=== PATIENT | male | born 1930 | race Caucasian/White ===

== ENCOUNTER 2016-08-07 13:43 | Emergency (ER) | payer OTHER ==
[~2016-08-07] VITALS: Ht 170.2 cm; Wt 76.0 kg
[~2016-08-07 13:43] MED LIST: ACET-1311 PO; ALBU1AER9 INH; ALEN70TA4 PO; ASPI1TAB83 PO; AZIT500T26 PO; CRD200 PO; GUAI1TAB75 PO; IPRASOL4 INH; ISR20 PO; LACT1CAP6 PO; LEVO75TA5 PO; LORA-741 PO; MOME220A INH; OXGN; POLY335019 PO; PRED-301 PO; PRED10TA PO; PRLSR20 PO; SULF800T23 PO; TIOTCAP INH
[2016-08-07 13:49] VITALS: TEMP 36.5; Ht 170.2 cm; Wt 76.0 kg
[2016-08-07] MEDS ORDERED: LEVO100T7 PO (14:28)
[2016-08-07] MEDS ORDERED: ISOS20TA15 PO (14:38)
[2016-08-07] MEDS ORDERED: DOCU-94 PO (14:38)
[2016-08-07] MEDS ORDERED: HYDR-5688 PO ×2 (14:38→16:02)
[2016-08-07] MEDS ORDERED: LSX20 PO (14:38)
[2016-08-07] MEDS ORDERED: POTA10TA33 PO (14:38)
[2016-08-07] MEDS ORDERED: SPRIN/30 INH (14:38)
[2016-08-07] MEDS ORDERED: DXY100 PO (14:38)
[2016-08-07] MEDS ORDERED: ALBU18002 INH (14:38)
[2016-08-07] MEDS ORDERED: CRD200 PO (14:38)
[2016-08-07] MEDS ORDERED: PRED10TA PO (14:43)
--- NOTE | 2016-08-07 15:10 | DIAGNOSTIC IMAGING REPORT ---
RIGHT HUMERUS MIN 2 VIEWS ROUTINE CLINICAL HISTORY: right shoulder pain eval for fx Right trauma. Pain. COMPARISON: None. DISCUSSION: Fracture humeral head. Slight flattening flattening lateral aspect humeral head. No evidence of dislocation. Remaining components of the humerus are unremarkable. There is no evidence for soft tissue swelling. IMPRESSION: Fracture humeral head. The remainder of the humerus is negative. Electronically signed by: Abram Prince M.D. 08/07/2016 3:08 PM Dictated Date/Time: 08/07/2016 3:07 PM
--- NOTE | 2016-08-07 15:12 | DIAGNOSTIC IMAGING REPORT ---
RIGHT SHOULDER MIN 2 VIEWS ROUTINE CLINICAL HISTORY: Right shoulder pain COMPARISON: None. DISCUSSION: There is a suspected age-indeterminate impaction deformity of the humeral neck with irregularity of the greater tuberosity. Please can't with any history of recent trauma. IMPRESSION: Age-indeterminate impaction deformity humeral neck with mild associated irregularity of the greater tuberosity. Please correlate with history of current or prior trauma. Electronically signed by: Felice Montanez M.D. 08/07/2016 3:11 PM Dictated Date/Time: 08/07/2016 3:07 PM
--- NOTE | 2016-08-07 15:12 | DIAGNOSTIC IMAGING REPORT ---
CHEST 2 VIEWS ROUTINE CLINICAL HISTORY: cough eval for pnea dyspnea COMPARISON STUDY: 04/05/2016 FINDINGS: Chronic prominence of the central pulmonary vascular area in chronic bibasilar atelectatic change. And upper lungs are considered clear. Potential minimal infiltrative process posterior gastric angle. IMPRESSION: Minimal parenchymal infiltrate posterior costophrenic angle. Chronic pulmonary hypertension changes. Chronic bibasilar atelectatic changes Electronically signed by: Abram Prince M.D. 08/07/2016 3:11 PM Dictated Date/Time: 08/07/2016 3:09 PM
[2016-08-07] MEDS ORDERED: DOXYCYCLINE HYCLATE 100 MG CAP PO STA (15:21)
[2016-08-07] MEDS ORDERED: SULF800T23 PO (16:02)
[2016-08-07] MEDS ORDERED: PRD20 PO (16:02)
[2016-08-07 16:57] VITALS: BP 133/88; PULSE 60; O2SAT 100
--- NOTE | 2016-08-07 21:57 | EMERGENCY ROOM VISIT NOTE ---
History Report prepared by Billyibjuliann: Thea Pak Under the Supervision of: Dr. Edwin James M.D. First contact with patient: 13:59 Chief Complaint: SHOULDER PAIN Stated Complaint: FALL/ SHOULDER PAIN History of Present Illness The patient is a 85 year old male who presents to the Emergency Room with complaints of persistent shoulder pain that started after a fall earlier today. He was brought to the ED via EMS. He reports after lunch today, he was getting up from his chair, when the chair got caught on a rug and the patient fell over , landing on his right shoulder. He rates his pain as a 7/10 and notes movement worsens his discomfort. He describes the pain as feeling "sharp" in nature. He can still feel his hand and fingers and denies any numbness or weakness in the extremity. He denies any loss of consciousness of sustaining other injuries. He denies any head or neck injury. He also complains of a productive cough with yellow sputum but denies any fevers, chest pain, or shortness of breath and reports "I have been coughing for a very long time". 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 A total of 10 systems reviewed and were otherwise negative. 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 Surgical Problems: (1) S/P IVC filter (2) Status post abdominal aortic aneurysm repair (3) Status post aortobifemoral bypass surgery (4) Status post carotid endarterectomy (5) Status post colonoscopy Family History Abdominal aortic aneurysm FATHER Blood clots MOTHER Congestive heart failure MOTHER Meningitis SISTER Social History Smoking Status: Former Smoker Alcohol Use: none Drug Use: none Marital Status: Housing Status: lives with significant other Occupation Status: retired Current/Historical Medications Scheduled Alendronate Sodium (Fosamax), 70 MG PO WK Amiodarone HCl (Amiodarone HCl), 200 MG PO DAILY Aspirin (Aspirin), 81 MG PO DAILY Doxycycline Hyclate (Doxycycline Hyclate), 100 MG PO DAILY Guaifenesin La (Guaifenesin Er), 600 MG PO UD Isosorbide Dinitrate (Isordil), 20 MG PO BID Lactobacillus (Probiotic), 1 CAP PO TIDM Levothyroxine Sodium (Levothyroxine Sodium), 1 TAB PO DAILY Mometasone Furoate (Inhalation (Asmanex Twisthaler 120 Me), 2 PUFF INH DAILY Omeprazole (Prilosec), 20 MG PO DAILY Oxygen (Oxygen), 5 LITERS NA CONTINOUS Potassium Chloride (Potassium Chloride Sr), 1 TAB PO DAILY Prednisone (Prednisone), 2 TABS PO dailyfor 5days then1 Prednisone Tab (Prednisone), 10 MG PO DAILY Sulfa/Trimethoprim (Bactrim Ds 800MG/160MG), 1 TAB PO BID Tiotropium [place] (Spiriva Handihaler), 1 CAP INH DAILY Scheduled PRN Acetaminophen (Tylenol), 650 MG PO Q4 PRN for Pain or Fever Albuterol Sulfate (Proair Respiclick), 2 PUFF INH Q4 PRN for SOB/Wheezing Docusate Sodium (Colace), 1 CAP PO DAILY PRN for Constipation Furosemide (Furosemide), 1 TAB PO WK PRN for EDEMA Hydrocodone/Acetaminophen 5MG/325MG ([place] 5MG/325MG), 1 TABLET PO Q4 PRN for Pain Hydrocodone/Acetaminophen 5MG/325MG ([place] 5MG/325MG), 1 TABLET PO Q4 PRN for Pain Ipratropium-Albuterol (Duoneb), 1 TREATMENT INH Q4H PRN for SOB/Wheezing Lorazepam (Ativan), 0.5 MG PO Q8 PRN for Anxiety Polyethylene Glycol 3350 (Miralax), 17 GM PO DAILY PRN for Constipation Prednisone Tab (Prednisone), 10 MG PO DAILY PRN for COPD RESCUE KIT Sulfa/Trimethoprim (Bactrim Ds 800MG/160MG), 1 TAB PO BID PRN for COPD RESCUE KIT Allergies Coded Allergies: Ciprofloxacin (Verified Allergy, Severe, RUPTURED RIGHT BICEP TENDON, 04/03) Levofloxacin (Verified Allergy, Severe, TONGUE SWELLING/SOB, 04/03/16) PER DR GERMAN PHONE CALL Amoxicillin (Verified Allergy, Unknown, rash, 04/03/16) Codeine (Verified Adverse Reaction, Intermediate, CONSTIPATION, 04/03/16) Doxycycline (Verified Adverse Reaction, Intermediate, DISORIENTED AND DIZZINESS, 04/03/16) Morphine and Related (Verified Adverse Reaction, Intermediate, CONSTIPATION, 04/03/16) Roflumilast (Verified Adverse Reaction, Unknown, [place] Drunk, 04/03/16) Listed in [facility] record Physical Exam Vital Signs Date Time Temp Pulse Resp B/P Pulse Ox O2 Delivery O2 Flow Rate FiO2 08/07/16 16:57 60 22 133/88 100 08/07/16 15:37 57 20 168/85 100 Room Air 08/07/16 13:49 36.5 67 22 167/93 92 3.0 Physical Exam Constitutional: Vital signs reviewed. Eyes: Pupils are equal round reactive to light. Conjunctiva are noninjected. ENT: Pharynx is clear without erythema or exudate. Mucous membranes are moist. Neck supple without meningeal signs. No midline tenderness to the cervical spine. Respiratory: Clear to auscultation bilaterally. Breath sounds are equal bilaterally. Cardiovascular: Regular rate and rhythm. No rubs or gallops. GI: Soft, nondistended and nontender. Bowel sounds are present. Musculoskeletal: Tenderness to the proximal humerus and shoulder, no deformity, normal distal pulses. No tenderness to the distal humerus, elbow, wrist or hand , no hip tenderness. Integumentary: No cyanosis. Neurological: The patient is awake and alert. No focal deficits. Normal sensation and motor in the distal right upper extremity throughout all major nerve distributions. Psychiatric: Normal affect. Medical Decision & Procedures ER Provider Diagnostic Interpretation: These X-Rays were reviewed and interpreted by myself and the radiologist. CHEST 2 VIEWS ROUTINE CLINICAL HISTORY: cough eval for pnea dyspnea COMPARISON STUDY: 04/05/2016 FINDINGS: Chronic prominence of the central pulmonary vascular area in chronic bibasilar atelectatic change. And upper lungs are considered clear. Potential minimal infiltrative process posterior gastric angle. IMPRESSION: Minimal parenchymal infiltrate posterior costophrenic angle. Chronic pulmonary hypertension changes. Chronic bibasilar atelectatic changes Electronically signed by: Abram Prince M.D. 08/07/2016 3:11 PM RIGHT HUMERUS MIN 2 VIEWS ROUTINE CLINICAL HISTORY: right shoulder pain eval for fx Right trauma. Pain. COMPARISON: None. DISCUSSION: Fracture humeral head. Slight flattening flattening lateral aspect humeral head. No evidence of dislocation. Remaining components of the humerus are unremarkable. There is no evidence for soft tissue swelling. IMPRESSION: Fracture humeral head. The remainder of the humerus is negative. Electronically signed by: Abram Prince M.D. 08/07/2016 3:08 PM RIGHT HUMERUS MIN 2 VIEWS ROUTINE CLINICAL HISTORY: right shoulder pain eval for fx Right trauma. Pain. COMPARISON: None. DISCUSSION: Fracture humeral head. Slight flattening flattening lateral aspect humeral head. No evidence of dislocation. Remaining components of the humerus are unremarkable. There is no evidence for soft tissue swelling. IMPRESSION: Fracture humeral head. The remainder of the humerus is negative. Electronically signed by: Abram Prince M.D. 08/07/2016 3:08 PM ED Course 1402: The patient was evaluated in room A9B. A complete history and physical exam was performed. 1523: I reevaluated the patient. He states he has been on Doxycycline for about 3 months now and when he gets pneumonia, his Applications Consultant puts him on Bactrim and Prednisone. His breathing is no worse than it usually is, but his son noticed he had a productive cough over the last 2 days. I also discussed his humeral fracture and he will follow up with his Orthopedist. 1540: I discussed the patients case with GUCCI Maria, [facility]. She recommends I take the patient off Doxycycline and put him on Prednisone and Bactrim for 10 days. 1545: I discussed my conversation with Maddy Fulton, with the patient and his son. They verbalized complete understanding and agreement. He says for pain medication, he uses Hydrocodone, but he is running out and is requesting a new prescription. Medical Decision This is an 85-year-old male who presents with shoulder pain after fall and a productive cough. Differential diagnosis includes humeral fracture, shoulder dislocation, contusion, pneumonia, bronchitis. I did perform a limited focused review of portions of the patient's old chart on the electronic medical record. The patient has had no recent pertinent visits to this hospital. I did evaluate the patient as noted above. The patient had a mechanical fall and injured his right shoulder. He denies any other injuries, and particular he denies head or neck injury. He has had a productive cough over the past several days but states that he has a chronic cough. He is on oxygen daily for COPD and denies feeling more short of breath than usual. I did order and personally review the patient's right humeral, shoulder and chest x-rays as described above. The patient has a humeral head fracture. He also has what looks like a infiltrate on chest x-ray. I did discuss the test results with the patient and his son. He denies feeling short of breath or having chest pain. His lungs do not demonstrate any significant wheezing. He is on doxycycline chronically. I spoke to his abrading machine tender and she recommended that the patient be placed on Bactrim and 10 days of steroids and stop the doxycycline. The patient was happy with this plan and was discharged with a prescription for Bactrim and steroids. He was also given a prescription for [place] for his shoulder pain. He has used [place] in the past. He was also placed in a arm sling. He will follow up with [facility] for his humeral fracture. [place] Drug Monitoring Program Search Results: no issues identified Consults Time Called: 1528 Consulting Physician: GUCCI Maria [facility] Returned Call: 1540 I discussed the patients case with GUCCI Maria [facility]. She recommends I take the patient off Doxycycline and put him on Prednisone and Bactrim for 10 days. Impression Primary Impression: Right humeral fracture Additional Impressions: Fall Pneumonia Scribe Attestation The scribe's documentation has been prepared under my direct and personally reviewed by me in its entirety. I confirm that the note above accurately reflects all work, treatment, procedures, and medical decision making performed by me. Departure Information Dispostion Home / Self-Care Prescriptions Hydrocodone/Acetaminophen 5MG/325MG ([place] 5MG/325MG) Tab 1 TABLET PO Q4 Y for Pain, #20 TAB Prov: Edwin James M.D. 08/07/16 Prednisone (Prednisone) 20 Mg Tab 2 TABS PO dailyfor 5days then1 for 10 Days, #15 TABS Prov: Edwin James M.D. 08/07/16 Sulfa/Trimethoprim (Bactrim Ds 800MG/160MG) Tab 1 TAB PO BID, #20 TAB Prov: Edwin James M.D. 08/07/16 Referrals Gorge Larson M.D.([facility]) (PCP) Patient Instructions ED Fx Upper Ext, My [facility], Pneumonia Dc Additional Instructions You have been examined and treated today on an emergency basis only. This is not a substitute for, or an effort to provide, complete comprehensive medical care. It is impossible to recognize and treat all injuries or illnesses in a single emergency department visit. It is therefore important that you follow up closely with your physician and your orthopedic doctor. Call as soon as possible for an appointment. Return for worsening symptoms or if you develop fever, vomiting, chest pain, shortness breath, numbness or weakness to your right arm, significant swelling or any other concerning symptoms. Stop doxycycline and take Bactrim instead. Problem Qualifiers
== END 2016-08-07 16:58 | disposition home or self-care (01) ==
LOC: EDBD 13:43 → C.EDA 13:45
DX: S42.301A Unspecified fracture of shaft of humerus, right arm, initial encounter for closed fracture (principal); J18.9 Pneumonia, unspecified organism; W07.XXXA Fall from chair, initial encounter; J96.11 Chronic respiratory failure with hypoxia; J44.9 Chronic obstructive pulmonary disease, unspecified; E03.9 Hypothyroidism, unspecified; I73.9 Peripheral vascular disease, unspecified; E78.5 Hyperlipidemia, unspecified; Z87.891 Personal history of nicotine dependence; Z99.81 Dependence on supplemental oxygen

== ENCOUNTER 2016-08-10 09:12 | Inpatient (IN) | payer OTHER ==
[~2016-08-10] VITALS: Ht 170.2 cm; Wt 75.0 kg
[~2016-08-10 09:12] MED LIST changes: +ALBU18002 INH; -ALBU1AER9 INH; -AZIT500T26 PO; +DOCU-94 PO; +DXY100 PO; +HYDR-5688 PO; +ISOS20TA15 PO; -ISR20 PO; +LEVO100T7 PO; -LEVO75TA5 PO; +LSX20 PO; +POTA10TA33 PO; +PRD20 PO; -PRED-301 PO; +SPRIN/30 INH; -TIOTCAP INH
[2016-08-10] MEDS ORDERED: SODIUM CHLORIDE 0.9% 1000ML 1,000 ML IV STA (09:36)
--- NOTE | 2016-08-10 09:54 | EMERGENCY ROOM VISIT NOTE ---
History Report prepared by Hilary: Edmond García Under the Supervision of: Dr. Gi Bauer M.D. First contact with patient: 09:22 Chief Complaint: URINARY SYMPTOMS Stated Complaint: CONFUSION, URINARY SYMPTOMS Nursing Triage Summary: pt fell on fri had an R arm fx, son reports since yesterday pt has had increased confusion and " talking nonsense" + urinary sx , + incontinenc History of Present Illness The patient is an 85 year old male who presents to the Emergency Room with complaints of persistent confusion since that started 2 days ago. Per patient's son, the patient has been talking "nonsense" for the past few days. The patient was recently discharged from the hospital 3 days ago after a fall that injured his arm. He was also diagnosed with pneumonia and was started on Bactrim and Prednisone. The patient notes that since being discharged from the hospital the patient has been acting more confused than usual. He notes that patient was not confused at the time of the fall or before the fall occurred. Last night, the patient imagined multiple people stopping at his 's bed and that he talked to them. The patient has also had multiple episodes where he has lost control of his bladder including episodes in his sleep. The patient denies fever or urinary burning. The patient took one dose of pain medication for his injured arm 2 days ago, but hasn't taken any since then. Source of History: patient, family Onset: 2 days ago Position: other (global) Timing: other (persistent) Associated Symptoms: + urinary symptoms (urinary incontinence), No fevers Note: Other associated symptoms: talking "nonsense", imagining/ talking to people at night. Denies: urinary burning Review of Systems See HPI for pertinent positives & negatives. A total of 10 systems reviewed and were otherwise negative. 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 Surgical Problems: (1) S/P IVC filter (2) Status post abdominal aortic aneurysm repair (3) Status post aortobifemoral bypass surgery (4) Status post carotid endarterectomy (5) Status post colonoscopy Family History Abdominal aortic aneurysm FATHER Blood clots MOTHER Congestive heart failure MOTHER Meningitis SISTER Social History Smoking Status: Former Smoker Alcohol Use: none Drug Use: none Marital Status: Housing Status: lives with significant other Occupation Status: retired Current/Historical Medications Scheduled Alendronate Sodium (Fosamax), 70 MG PO WK Amiodarone HCl (Amiodarone HCl), 200 MG PO DAILY Aspirin (Aspirin), 81 MG PO DAILY Doxycycline Hyclate (Doxycycline Hyclate), 100 MG PO DAILY Guaifenesin La (Guaifenesin Er), 600 MG PO UD Isosorbide Dinitrate (Isordil), 20 MG PO BID Lactobacillus (Probiotic), 1 CAP PO TIDM Levothyroxine Sodium (Levothyroxine Sodium), 1 TAB PO DAILY Omeprazole (Prilosec), 20 MG PO DAILY Oxygen (Oxygen), 4 LITERS NA CONTINOUS Potassium Chloride (Potassium Chloride Sr), 1 TAB PO DAILY Prednisone (Prednisone), 2 TABS PO dailyfor 5days then1 Prednisone Tab (Prednisone), 10 MG PO DAILY Sulfa/Trimethoprim (Bactrim Ds 800MG/160MG), 1 TAB PO BID Tiotropium [place] (Spiriva Handihaler), 1 CAP INH DAILY Scheduled PRN Acetaminophen (Tylenol), 650 MG PO Q4 PRN for Pain or Fever Albuterol Sulfate (Proair Respiclick), 2 PUFF INH Q4 PRN for SOB/Wheezing Docusate Sodium (Colace), 1 CAP PO DAILY PRN for Constipation Furosemide (Furosemide), 1 TAB PO WK PRN for EDEMA Hydrocodone/Acetaminophen 5MG/325MG ([place] 5MG/325MG), 1 TABLET PO Q4 PRN for Pain Ipratropium-Albuterol (Duoneb), 1 TREATMENT INH Q4H PRN for SOB/Wheezing Lorazepam (Ativan), 0.5 MG PO Q8 PRN for Anxiety Polyethylene Glycol 3350 (Miralax), 17 GM PO DAILY PRN for Constipation Prednisone Tab (Prednisone), 10 MG PO DAILY PRN for COPD RESCUE KIT Sulfa/Trimethoprim (Bactrim Ds 800MG/160MG), 1 TAB PO BID PRN for COPD RESCUE KIT Allergies Coded Allergies: Ciprofloxacin (Verified Allergy, Severe, RUPTURED RIGHT BICEP TENDON, 08/10) Levofloxacin (Verified Allergy, Severe, TONGUE SWELLING/SOB, 08/10/16) PER DR GERMAN PHONE CALL Amoxicillin (Verified Allergy, Intermediate, rash, 08/10/16) Codeine (Verified Adverse Reaction, Intermediate, CONSTIPATION, 08/10/16) Doxycycline (Verified Adverse Reaction, Intermediate, DISORIENTED AND DIZZINESS, 08/10/16) Morphine and Related (Verified Adverse Reaction, Intermediate, CONSTIPATION, 08/10/16) Roflumilast (Verified Adverse Reaction, Intermediate, [place] Drunk, 08/10/16) Listed in [facility] record Physical Exam Vital Signs Date Time Temp Pulse Resp B/P Pulse Ox O2 Delivery O2 Flow Rate FiO2 08/10/16 13:19 70 08/10/16 12:09 84 18 135/68 94 Nasal Cannula 3.0 08/10/16 10:59 68 18 142/69 92 Nasal Cannula 3.0 08/10/16 10:28 67 08/10/16 09:17 36.6 106 20 129/63 96 Room Air Physical Exam Vital signs reviewed. General: Elderly chronically-appearing male, in no distress. HEENT: No scleral icterus, PERRLA, neck supple. Atraumatic. Cardiovascular: Regular rate and rhythm, no extra sounds. Pulmonary: On nasal canula oxygen, diminished breath sounds bilaterally. Abdomen: Soft, nontender, nondistended, positive bowel sounds. Musculoskeletal: Atraumatic, no peripheral edema. Neurologic: Patient awake alert and oriented x 3, full strength in all 4 extremities. Cranial nerves 2 through 12 grossly intact. Answering most questions appropriately. Skin: Warm, dry, no rash Medical Decision & Procedures ER Provider Diagnostic Interpretation: X-ray results as stated below per interpretation by me and the radiologist: CHEST ONE VIEW PORTABLE CLINICAL HISTORY: Fall. Altered mental status. COMPARISON STUDY: Chest radiograph August 07, 2016. FINDINGS: The patient is rotated. Mild cardiomegaly is unchanged. No pneumothorax or pleural effusion is present. There is no lobar consolidation. Mild lower lung interstitial thickening is similar to prior exams. The appearance of the chest is unchanged. Emphysema is noted. IMPRESSION: No acute findings. No change in appearance of the chest with stable bilateral lower lung interstitial thickening and underlying emphysema. Electronically signed by: Jose Hopkins M.D. 08/10/2016 10:02 AM Dictated Date/Time: 08/10/2016 10:[address]AST CT DOSE: 614.27 mGy.cm HISTORY: Change in mental status AMS TECHNIQUE: Multiaxial CT images of the head were performed without the use of intravenous contrast. Comparison: 07/29/2015 Findings: The paranasal sinuses and mastoid air cells are clear. Age-related atrophy and chronic small vessel change. No acute intracranial hemorrhage. No evidence of midline shift. Impression: No acute process. Age-related change. Electronically signed by: Abram Prince M.D. 08/10/2016 10:46 AM Dictated Date/Time: 08/10/2016 10:45 AM Laboratory Results Test 08/10/16 09:30 08/10/16 09:50 08/10/16 10:00 08/10/16 10:07 Prothrombin Time 11.2 SECONDS (9.0-12.0) Prothromb Time International Ratio 1.0 (0.9-1.1) Activated Partial Thromboplast Time 22.2 SECONDS (21.0-31.0) Partial Thromboplastin Ratio 0.9 Total Bilirubin 0.4 mg/dl (0.2-1) Direct Bilirubin 0.1 mg/dl (0-0.2) Aspartate Amino Transf (AST/SGOT) 14 U/L (15-37) Alanine Aminotransferase (ALT/SGPT) 23 U/L (12-78) Alkaline Phosphatase 71 U/L (45-117) Ammonia < 10.0 umol/L (11-32) Total Creatine Kinase 65 U/L (39-308) Creatine Kinase MB 3.9 ng/ml (0.5-3.6) Creatine Kinase MB Ratio 6.0 (0-3.0) Total Protein 5.8 gm/dl (6.4-8.2) Albumin 3.2 gm/dl (3.4-5.0) Thyroid Stimulating Hormone (TSH) 1.860 uIu/ml (0.300-4.500) Bedside Lactic Acid Venous 2.89 mmol/L (0.90-1.70) Bedside Troponin I 0.040 ng/ml (0-0.045) Test 08/10/16 11:55 Urine Color YELLOW Urine Appearance CLEAR (CLEAR) Urine pH 5.0 (4.5-7.5) Urine Specific [place] 1.022 (1.000-1.030) Urine Protein NEG (NEG) Urine Glucose (UA) NEG (NEG) Urine Ketones NEG (NEG) Urine Occult Blood 2+ (NEG) Urine Nitrite NEG (NEG) Urine Bilirubin NEG (NEG) Urine Urobilinogen NEG (NEG) Urine Leukocyte Esterase TRACE (NEG) Urine WBC (Auto) 1-5 /hpf (0-5) Urine RBC (Auto) 0-4 /hpf (0-4) Urine Hyaline Casts (Auto) 0 /lpf (0-5) Urine Epithelial Cells (Auto) 10-20 /lpf (0-5) Urine Bacteria (Auto) NEG (NEG) Laboratory results per my review. Medications Administered Medications (Trade) Dose Ordered Sig/Jesu Route Start Time Stop Time Status Last Admin Dose Admin Sodium Chloride (Nss 1000ml) 1,000 ml @ 125 mls/hr Q8H STAT IV 08/10/16 09:36 08/10/16 16:53 DC 08/10/16 10:13 125 MLS/HR Ceftriaxone Sodium (Rocephin Inj) 1 gm NOW STAT IV 08/10/16 11:43 08/10/16 11:45 DC 08/10/16 11:43 1 GM ECG Indication: altered mental status Rate (beats per minute): 72 Rhythm: sinus rhythm Findings: PAC, no acute ischemic change ED Course 0925: Past medical records reviewed. The patient was evaluated in room A9. A complete history and physical examination was performed. 0936: Ordered NSS 1000 ml @ 125 mls/hr IV. 1143: Ordered Rocephin Inj 1 gm IV. 1254: At this time, I reevaluated the patient and discussed the treatment plan with him and his son. 1300: At this time, I discussed the patient's case with Dr. Mercado - Jerome Angel and she agreed to accept the patient for further evaluation. Medical Decision Differential diagnosis: Etiologies such as metabolic, infection, hypoglycemia, electrolyte abnormalities , cardiac sources, intracerebral event, toxicologic, neurologic, as well as others were entertained. This pt was evaluated and appeared to be in no distress. IV access was obtained and lab work was drawn. Pt was placed on the cardiac cath rn. CT head was performed and is negative for acute intracranial abnl. CXR reveals chronic changes. Lab work reveals a mild leukocytosis, elevated lactic acid, of uncertain etiology. Pt was ordered 1 gm of IV ceftriaxone as he has PCN and fluroquinolone allergies. Pt was hydrated with NSS. I did discuss the findings with pt and family. He will be evaluated by the hospitalist service for further management. Consults Time Called: 1256 Consulting Physician: Dr. Mercado - Hospitalist Jeanne Returned Call: 1300 At this time, I discussed the patient's case with Dr. Mercado and she agreed to accept the patient for further evaluation. Impression Primary Impression: Altered mental status Additional Impressions: Leukocytosis Lactic acidosis Dehydration Scribe Attestation The scribe's documentation has been prepared under my direction and personally reviewed by me in its entirety. I confirm that the note above accurately reflects all work, treatment, procedures, and medical decision making performed by me. Departure Information Dispostion Being Evaluated By Hospitalist Referrals Gorge Larson M.D.(LIZ) (PCP) Problem Qualifiers Primary Impression: Altered mental status Altered mental status type: disorientation Qualified Codes: R41.0 - Disorientation, unspecified Additional Impressions: Leukocytosis Leukocytosis type: unspecified Qualified Codes: D72.829 - Elevated white blood cell count, unspecified
--- NOTE | 2016-08-10 10:03 | DIAGNOSTIC IMAGING REPORT ---
CHEST ONE VIEW PORTABLE CLINICAL HISTORY: Fall. Altered mental status. COMPARISON STUDY: Chest radiograph August 07, 2016. FINDINGS: The patient is rotated. Mild cardiomegaly is unchanged. No pneumothorax or pleural effusion is present. There is no lobar consolidation. Mild lower lung interstitial thickening is similar to prior exams. The appearance of the chest is unchanged. Emphysema is noted. IMPRESSION: No acute findings. No change in appearance of the chest with stable bilateral lower lung interstitial thickening and underlying emphysema. Electronically signed by: Jose Hopkins M.D. 08/10/2016 10:02 AM Dictated Date/Time: 08/10/2016 10:00 AM
[2016-08-10 10:18] LABS: BASO % 0.2 %; BASO ABS # 0.03 K/uL (0-0.2); COMPLETE YES; EOS % 0.2 %; IG% 2.3 %; LYMPH % 7.1 %; LYMPH ABS # 0.87 K/uL (1.2-3.4); MEAN CELL VOLUME 98.1 fL (80-100); MEAN CORPUSCULAR HEMOGLOBIN 32.9 pg (25-34); MEAN CORPUSCULAR HGB CONC 33.5 g/dl (32-36); MEAN PLATELET VOLUME 10.1 fL (7.4-10.4); MONO % 11.4 %; NEUT % 78.8 %; PLATELET COUNT 135 K/uL (130-400); RED BLOOD COUNT 3.16 M/uL (4.7-6.1); WHITE BLOOD COUNT 12.32 K/uL (4.8-10.8)
[2016-08-10 10:45] LABS: BUN/CREATININE RATIO 27.5 (10-20); CALCIUM 9.1 mg/dl (8.5-10.1); CREATININE 1.5 mg/dl (0.60-1.40); POTASSIUM 3.7 mmol/L (3.5-5.1)
--- NOTE | 2016-08-10 10:47 | DIAGNOSTIC IMAGING REPORT ---
HEAD CT NONCONTRAST CT DOSE: 614.27 mGy.cm HISTORY: Change in mental status AMS TECHNIQUE: Multiaxial CT images of the head were performed without the use of intravenous contrast. Comparison: 07/29/2015 Findings: The paranasal sinuses and mastoid air cells are clear. Age-related atrophy and chronic small vessel change. No acute intracranial hemorrhage. No evidence of midline shift. Impression: No acute process. Age-related change. Electronically signed by: Abram Prince M.D. 08/10/2016 10:46 AM Dictated Date/Time: 08/10/2016 10:45 AM
[2016-08-10] MEDS ORDERED: CEFTRIAXONE SOD INJ 1 GM ADDVIAL IV STA (11:43)
[2016-08-10 12:19] LABS: URINE APPEARANCE CLEAR (CLEAR); URINE BILIRUBIN NEG (NEG); URINE COLOR YELLOW; URINE NITRITE NEG (NEG); URINE SPECIFIC GRAVITY 1.022 (1.000-1.030); UROBILINOGEN NEG (NEG); ZZUR CULT IF INDIC CLEAN CATCH NO
[2016-08-10 12:21] LABS: MANUAL MICROSCOPIC REQUIRED? NO; REVIEW REQ? NO
[2016-08-10] MEDS ORDERED: ACETAMINOPHEN 325 MG TAB PO PRN (13:45)
[2016-08-10] MEDS ORDERED: ONDANSETRON INJ 2 MG/ML 2 ML VIAL IV PRN (13:45)
[2016-08-10 13:59] LABS: PARTIAL THROMBOPLASTIN RATIO 0.9; PROTHROMBIN TIME (PATIENT) 11.2 SECONDS (9.0-12.0)
[2016-08-10] MEDS ORDERED: SODIUM CHLORIDE 0.9% 1000ML 1,000 ML IV SCH (14:00)
[2016-08-10] MEDS ORDERED: DOCUSATE SODIUM 100 MG CAP PO PRN (15:00)
[2016-08-10] MEDS ORDERED: HYDROCODONE/ACETAMOPHEN 5/325MG TAB PO PRN (15:00)
[2016-08-10] MEDS ORDERED: ALBUT/IPRATROP 3MG/0.5MG NEB 3 ML VIAL INH PRN (15:00)
[2016-08-10] MEDS ORDERED: LORAZEPAM 0.5 MG TAB PO PRN (15:00)
--- NOTE | 2016-08-10 15:00 | History and Physical ---
History & Physical Date & Time of Service: Aug 10, 2016 at 13:53 Chief Complaint: Confusion, Urinary Symptoms Primary Care Physician: Gorge Larson M.D.(LIZ) History of Present Illness Source: patient, family, clinic records, hospital records Patient seen and examined. 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 Patient reports he is here for a check up and history is taken primarily from his son. Who reports patient had a mechanical fall on 08/07. He came to the ED and was diagnosed with a right humerus fracture. He was also diagnosed with pneumonia at that time and discharged home with prednisone, Bactrim, and Acme. The next evening the patient started being very "hyper" he was talking in nonsense and started having visual hallucinations. Son reports the patient hardly slept at all. Also each morning when the patient woke up in the morning his bedsheets were wet. His son is unsure if he was incontinent and or just missed when using his urinal bottle. He reports that the patient has not had any day time incontinence. He reports in the past the patient has been hyper with higher doses of prednisone than his chronic 10mg, but has never had these other confused symptoms. Son reports that he does not think the patient has had Acme since Wednesday morning. In the ED VS are stable, POC lactate is 2.89, WBC count is 12K, CT head is negative, 1 view CXR is without acute abnormality. UA has trace leukocyte esterase and +2 RBCs. He received Rocephin and IVFs. He will be admitted for further workup and treatment. Past Medical/Surgical History Medical Problems: (1) AAA (abdominal aortic aneurysm) Permanent Comment: CT angio 06/11/15-stable 4.4 cm AAA Status: Chronic (2) Abdominal hernia Status: Chronic (3) Carotid artery stenosis Status: Chronic (4) Chronic obstructive lung disease Status: Chronic (5) Chronic respiratory failure Status: Chronic (6) Dyslipidemia Status: Chronic (7) History of adenomatous polyp of colon Status: Chronic (8) History of central retinal artery occlusion Status: Chronic (9) History of Clostridium difficile Status: Chronic (10) History of DVT (deep vein thrombosis) Permanent Comment: unprovoked bilat pulm emboli + DVT LLE December 2013 Status: Chronic (11) History of pulmonary embolism Permanent Comment: unprovoked bilat pulm emboli + DVT LLE December 2013 Status: Chronic (12) Hypothyroidism Status: Chronic (13) Peripheral vascular disease Status: Chronic (14) Pulmonary nodules Status: Chronic (15) Wandering atrial pacemaker Status: Chronic Surgical Problems: (1) S/P IVC filter Status: Chronic (2) Status post abdominal aortic aneurysm repair Status: Chronic (3) Status post aortobifemoral bypass surgery Status: Chronic (4) Status post carotid endarterectomy Status: Chronic (5) Status post colonoscopy Status: Chronic Family History Abdominal aortic aneurysm FATHER Blood clots MOTHER Congestive heart failure MOTHER Meningitis SISTER Social History Smoking Status: Former Smoker Drug Use: none Marital Status: Housing status: lives with family, lives with significant other Occupational Status: retired Immunizations History of Influenza Vaccine: Yes Influenza Vaccine Date: Mar 19, 2014 History of Tetanus Vaccine?: Yes History of Pneumococcal: Yes Pneumococcal Date: Mar 29, 2009 History of Hepatitis B Vaccine: No Multi-Drug Resistant Organisms History of MDRO: No Allergies Coded Allergies: Ciprofloxacin (Verified Allergy, Severe, RUPTURED RIGHT BICEP TENDON, 08/10) Levofloxacin (Verified Allergy, Severe, TONGUE SWELLING/SOB, 08/10/16) PER DR GERMAN PHONE CALL Amoxicillin (Verified Allergy, Intermediate, rash, 08/10/16) Codeine (Verified Adverse Reaction, Intermediate, CONSTIPATION, 08/10/16) Doxycycline (Verified Adverse Reaction, Intermediate, DISORIENTED AND DIZZINESS, 08/10/16) Morphine and Related (Verified Adverse Reaction, Intermediate, CONSTIPATION, 08/10/16) Roflumilast (Verified Adverse Reaction, Intermediate, [place] Drunk, 08/10/16) Listed in [facility] record Home Medications Scheduled Alendronate Sodium (Fosamax), 70 MG PO WK Amiodarone HCl (Amiodarone HCl), 200 MG PO DAILY Aspirin (Aspirin), 81 MG PO DAILY Doxycycline Hyclate (Doxycycline Hyclate), 100 MG PO DAILY Guaifenesin La (Guaifenesin Er), 600 MG PO UD Isosorbide Dinitrate (Isordil), 20 MG PO BID Lactobacillus (Probiotic), 1 CAP PO TIDM Levothyroxine Sodium (Levothyroxine Sodium), 1 TAB PO DAILY Omeprazole (Prilosec), 20 MG PO DAILY Oxygen (Oxygen), 4 LITERS NA CONTINOUS Potassium Chloride (Potassium Chloride Sr), 1 TAB PO DAILY Prednisone (Prednisone), 2 TABS PO dailyfor 5days then1 Prednisone Tab (Prednisone), 10 MG PO DAILY Sulfa/Trimethoprim (Bactrim Ds 800MG/160MG), 1 TAB PO BID Tiotropium [place] (Spiriva Handihaler), 1 CAP INH DAILY Scheduled PRN Acetaminophen (Tylenol), 650 MG PO Q4 PRN for Pain or Fever Albuterol Sulfate (Proair Respiclick), 2 PUFF INH Q4 PRN for SOB/Wheezing Docusate Sodium (Colace), 1 CAP PO DAILY PRN for Constipation Furosemide (Furosemide), 1 TAB PO WK PRN for EDEMA Hydrocodone/Acetaminophen 5MG/325MG (Acme 5MG/325MG), 1 TABLET PO Q4 PRN for Pain Ipratropium-Albuterol (Duoneb), 1 TREATMENT INH Q4H PRN for SOB/Wheezing Lorazepam (Ativan), 0.5 MG PO Q8 PRN for Anxiety Polyethylene Glycol 3350 (Miralax), 17 GM PO DAILY PRN for Constipation Prednisone Tab (Prednisone), 10 MG PO DAILY PRN for COPD RESCUE KIT Sulfa/Trimethoprim (Bactrim Ds 800MG/160MG), 1 TAB PO BID PRN for COPD RESCUE KIT Review of Systems Unable to assess d/t mental status Physical Exam Vital Signs Date Time Temp Pulse Resp B/P Pulse Ox O2 Delivery O2 Flow Rate FiO2 08/10/16 13:42 65 18 132/71 Nasal Cannula 3.0 08/10/16 13:19 70 08/10/16 12:09 84 18 135/68 94 Nasal Cannula 3.0 08/10/16 10:59 68 18 142/69 92 Nasal Cannula 3.0 08/10/16 10:28 67 08/10/16 09:17 36.6 106 20 129/63 96 Room Air General Appearance: + pertinent finding (WD/WN elderly 85 year old male lying in bed in NAD ) Head: normocephalic, atraumatic Eyes: PERRL, EOMI, sclerae normal ENT: hearing grossly normal, pharynx normal Neck: supple, no JVD Respiratory/Chest: chest non-tender, normal breath sounds, no respiratory distress, no accessory muscle use, + crackles (trace) Cardiovascular: regular rate, rhythm, no edema, no gallop, no JVD, normal peripheral pulses, + systolic murmur Abdomen/GI: normal bowel sounds, non tender, soft Back: normal inspection, no muscle spasm Extremities/Musculoskelatal: no calf tenderness, normal capillary refill, no pedal edema, + pertinent finding (Right arm in sling, pulses intact, no numbness or tingling ) Neurologic/Psych: + pertinent finding (Alert,& orietned x 3 no focal deficits noted ) Skin: normal color, warm/dry, no rash Lymphatic: no adenopathy Diagnostics Laboratory Results Results Past 24 Hours Test 08/10/16 09:30 08/10/16 09:50 08/10/16 10:00 08/10/16 10:07 Range/Units White Blood Count 12.32 4.8-10.8 K/uL Red Blood Count 3.16 4.7-6.1 M/uL Hemoglobin 10.4 14.0-18.0 g/dL Hematocrit 31.0 42-52 % Mean Corpuscular Volume 98.1 80-100 fL Mean Corpuscular Hemoglobin 32.9 25-34 pg Mean Corpuscular Hemoglobin Concent 33.5 32-36 g/dl Platelet Count 135 130-400 K/uL Mean Platelet Volume 10.1 7.4-10.4 fL Neutrophils (%) (Auto) 78.8 % Lymphocytes (%) (Auto) 7.1 % Monocytes (%) (Auto) 11.4 % Eosinophils (%) (Auto) 0.2 % Basophils (%) (Auto) 0.2 % Neutrophils # (Auto) 9.71 1.4-6.5 K/uL Lymphocytes # (Auto) 0.87 1.2-3.4 K/uL Monocytes # (Auto) 1.41 0.11-0.59 K/uL Eosinophils # (Auto) 0.02 0-0.5 K/uL Basophils # (Auto) 0.03 0-0.2 K/uL RDW Standard Deviation 57.7 36.4-46.3 fL RDW Coefficient of Variation 16.1 11.5-14.5 % Immature Granulocyte % (Auto) 2.3 % Immature Granulocyte # (Auto) 0.28 0.00-0.02 K/uL Sodium Level 144 136-145 mmol/L Potassium Level 3.7 3.5-5.1 mmol/L Chloride Level 107 98-107 mmol/L Carbon Dioxide Level 26 21-32 mmol/L Anion Gap 11.0 3-11 mmol/L Blood Urea Nitrogen 41 7-18 mg/dl Creatinine 1.50 0.60-1.40 mg/dl Est Creatinine Clear Calc Drug Dose 34.3 ml/min Estimated GFR () 48.8 Estimated GFR (Non- 42.1 BUN/Creatinine Ratio 27.5 10-20 Random Glucose 83 70-99 mg/dl Calcium Level 9.1 8.5-10.1 mg/dl Magnesium Level 2.0 1.8-2.4 mg/dl Total Bilirubin 0.4 0.2-1 mg/dl Direct Bilirubin 0.1 0-0.2 mg/dl Aspartate Amino Transf (AST/SGOT) 14 15-37 U/L Alanine Aminotransferase (ALT/SGPT) 23 12-78 U/L Alkaline Phosphatase 71 45-117 U/L Ammonia < 10.0 11-32 umol/L Total Creatine Kinase 65 39-308 U/L Creatine Kinase MB 3.9 0.5-3.6 ng/ml Creatine Kinase MB Ratio 6.0 0-3.0 Total Protein 5.8 6.4-8.2 gm/dl Albumin 3.2 3.4-5.0 gm/dl Bedside Lactic Acid Venous 2.89 0.90-1.70 mmol/L Bedside Troponin I 0.040 0-0.045 ng/ml Test 08/10/16 11:55 08/10/16 13:41 08/10/16 13:42 08/10/16 13:45 Range/Units Urine Color YELLOW Urine Appearance CLEAR CLEAR Urine pH 5.0 4.5-7.5 Urine Specific [place] 1.022 1.000-1.030 Urine Protein NEG NEG Urine Glucose (UA) NEG NEG Urine Ketones NEG NEG Urine Occult Blood 2+ NEG Urine Nitrite NEG NEG Urine Bilirubin NEG NEG Urine Urobilinogen NEG NEG Urine Leukocyte Esterase TRACE NEG Urine WBC (Auto) 1-5 0-5 /hpf Urine RBC (Auto) 0-4 0-4 /hpf Urine Hyaline Casts (Auto) 0 0-5 /lpf Urine Epithelial Cells (Auto) 10-20 0-5 /lpf Urine Bacteria (Auto) NEG NEG Microbiology Results 08/10/16 Blood Culture, Received Pending 08/10/16 Blood Culture, Received Pending Diagnostic Radiology CXR Per radiologist read: IMPRESSION: No acute findings. No change in appearance of the chest with stable bilateral lower lung interstitial thickening and underlying emphysema. CT HEAD Per radiologist read: Impression: No acute process. Age-related change. EKG Sinus Rhythm with PACs, 72 BPM, QTc 453 Impression Assessment and Plan 85 year old male presents to the ED with altered mental status ALTERED MENTAL STATUS -admit to tele -? cause possibly secondary to prednisone, pneumonia, sundowning, recent fracture and other etiologies -CT head negative for acute processes, patient nonfocal -EKG nonischemic, Troponin negative, no signs of ACS -Check PCR flu, urine tox screen, Tylenol level, B12, folate, and TSH -Stop increased prednisone dose, return to chronic 10mg daily -Gentle IVF hydration -Monitor overnight in tele -VSS -Fall precautions LEUKOCYTOSIS/ELEVATED LACTATE -WBC count 12K, POC lactate 2.89 -Leukocytosis possibly secondary to prednisone use -Point of care lactate may be unreliable, will repeat formal lactate now -CXR without pneumonia -Will finish course of treatment for pneumonia with Rocephin and Bactrim -check for Flu -Sputum cultures ordered -Blood cultures, urine culture pending -gentle IVF hydration -VS stable monitor in tele SEVERE COPD WITH RECENT CAP -1 view CXR today without acute processes -Has been on prednisone and Bactrim for 3 days -on chronic oxygen therapy, saturating well -continue home inhalers,nebs -Was on chronic Doxycycline prior starting Bactrim -Stop Bactrim -Rocephin and Azithromycin for CAP RIGHT HUMERUS FRACTURE -s/p mechanical fall -continue sling, norco prn HYPOTHYROIDISM -check TSH -continue Synthroid PAROXYSMAL AFIB -currently in sinus rhythm -not a candidate for termite treater anticoagulation -continue Amiodarone -continue Aspirin ANXIETY -continue Ativan prn HLD -h/o statin intolerance PERIPHERAL VASCULAR DISEASE -continue Aspirin, Imdur H/O THORACIC AORTIC ANEURYSM -3.9 cm on last check -followup with PCP DVT PROPHYLAXIS: Sq heparin CODE STATUS: LEVEL 5 DNR per my discussion with the patient and his son DISPO:In my clinical judgment this beneficiary meets acute admission criteria, established by [facility], that includes being hospitalized through two midnights. discharge planning eval Patient seen in collaboration with Dr. Mercado Level of Care Telemetry Resuscitation Status DO NOT RESUSCITATE VTE Prophylaxis VTE Risk Assessment Done? Y/N: Yes Risk Level: Moderate Given or contraindicated: Unfractionated heparin SQ Note ADDENDUM: I have examined the patient, discussed the case with the provider above. and agree with the assessment and plan as stated. His confusion was not present on my exam today as he is alert and oriented x 3. However, he did mention that he was up all night after hallucinations that men were trying to take down his door, and he had to stay awake to protect his . He informs me that he knew it wasn't real but it was haunting him and keeping him up. He denies any urinary symptoms and states that his cough has improved since being on the antibiotics. He uses home oxygen at home and doesn't feel that his breathing is any worse at this time. He denies fevers and chills. He denies any pain in his R arm at rest, which is significantly bruised and is in a sling. On exam he is HD stable and satting 91% on 2L via nasal canula and no conversational dyspnea. Lung sounds are diminished but no crackles, rales or wheezes were heard. CXR shows no pneumonia. B12 level is low, so will start IM replacement in setting of confusion. UA negative. Other labs pending. Agree with plan for initial tele monitoring as confusion is multifactorial. Radha Mercado, DO Hospitalist
[2016-08-10 15:11] VITALS: BP 123/72; PULSE 70; TEMP 36.6; O2SAT 94; Ht 170.2 cm; Wt 75.0 kg
[2016-08-10] MEDS ORDERED: ALBUTEROL HFA INHALER 8.5 GM INH PRN (15:15)
[2016-08-10] MEDS ORDERED: POLYETHYLENE (MIRALAX) 17 GM PACK PO PRN (15:15)
[2016-08-10 16:30] VITALS: BP 130/80; PULSE 84; TEMP 36; O2SAT 87
[2016-08-10] MEDS ORDERED: AZITHROMYCIN 250 MG TAB PO ONE (16:52)
[2016-08-10] MEDS ORDERED: CYANOCOBALAMIN 1000 MCG/ML VIAL IM ONE (18:30)
[2016-08-10 19:51] VITALS: BP 157/77; PULSE 80; TEMP 36.8; O2SAT 90
[2016-08-10] MEDS: HEPARIN SOD 5000 UNIT/0.5 ML CARP SQ SCH (20:33)
[2016-08-10] MEDS: GUAIFENESIN 600 MG TABCR PO SCH (20:34)
[2016-08-10 21:29] LABS: INFLUENZA A PCR Neg for Influ A (NEG); INFLUENZA B PCR Neg for Influ B (NEG)
[2016-08-11] VITALS (8 sets, daily range): BP systolic 113–138; BP diastolic 66–80; PULSE 70–86; TEMP 36.7–37.1; O2SAT 84–96
[2016-08-11 00:26] LABS: BENZODIAZEPINE, URINE NEG (NEG); COCAINE,URINE NEG (NEG); PHENCYCLIDINE, URINE NEG (NEG)
[2016-08-11 05:44] LABS: MEAN CELL VOLUME 100.3 fL (80-100); MEAN CORPUSCULAR HEMOGLOBIN 32.8 pg (25-34); MEAN CORPUSCULAR HGB CONC 32.7 g/dl (32-36); MEAN PLATELET VOLUME 10.5 fL (7.4-10.4); PLATELET COUNT 116 K/uL (130-400); RED BLOOD COUNT 2.99 M/uL (4.7-6.1)
[2016-08-11] MEDS: LEVOTHYROXINE 100 MCG TAB PO SCH (05:51)
[2016-08-11] MEDS: ISOSORBIDE DINITRATE 20 MG TAB PO SCH ×2 (05:51→12:48)
[2016-08-11] MEDS: HEPARIN SOD 5000 UNIT/0.5 ML CARP SQ SCH ×3 (05:52→23:13)
[2016-08-11 06:13] LABS: CALCIUM 8.3 mg/dl (8.5-10.1); CREATININE 1.7 mg/dl (0.60-1.40); MAGNESIUM 1.8 mg/dl (1.8-2.4); POTASSIUM 3.7 mmol/L (3.5-5.1)
[2016-08-11] MEDS: ASPIRIN 81 MG ECTAB PO SCH (08:25)
[2016-08-11] MEDS: AZITHROMYCIN 250 MG TAB PO SCH (08:25)
[2016-08-11] MEDS: POTASSIUM CHLORIDE 10 MEQ TABCR PO SCH (08:25)
[2016-08-11] MEDS: AMIODARONE 200 MG TAB PO SCH (08:25)
[2016-08-11] MEDS: PANTOprazole SOD 40 MG TAB PO SCH (08:25)
[2016-08-11] MEDS: TIOTROPIUM BROMIDE 5 PUFF/90 MCG INH INH SCH (08:26)
[2016-08-11] MEDS: GUAIFENESIN 600 MG TABCR PO SCH ×2 (08:26→23:11)
--- NOTE | 2016-08-11 11:52 | Clinical Documentation Query ---
ESTEFANÍA Arora : CLINICAL DOCUMENTATION QUERY Patient is an 85 year old male presenting with confusion and urinary symptoms, subsequently admitted with a diagnosis of altered mental status. This was deemed possibly secondary to prednisone, pneumonia, sundowning, fracture, and/or other etiology. As appropriate, consider clarification as suggested below as this directly impacts DRG assignment and assigns a higher severity of illness and is associated with a greater risk of mortality. In your clinical opinion is this patient being managed for: ( X ) Encephalopathy possibly secondary to prednisone, pneumonia, sundowning, recent fracture and other etiologies ( ) Other explanation of clinical findings (Please Explain) ( ) Unable to determine (Please Define) ( ) Need to Discuss ( ) Not Agree The medical record reflects the following clinical findings, treatment, and risk factors. Clinical Indicators: AMS in the setting of possible medication adverse effect, infectious process, other Treatment: CT head, labs, IVF, CXR, sputum and blood cultures Risk Factors: As above Encephalopathy is a term for any diffuse disease of the brain that alters brain function or structure. Encephalopathy may be caused by infectious agent (bacteria, virus, or prion), metabolic or mitochondrial dysfunction, brain tumor or increased pressure in the skull, prolonged exposure to toxic elements (including solvents, drugs, radiation, paints, industrial chemicals, and certain metals), chronic progressive trauma, poor nutrition, or lack of oxygen or blood flow to the brain. The hallmark of encephalopathy is an altered mental state. Depending on the type and severity of encephalopathy, common neurological symptoms are progressive loss of memory and cognitive ability, subtle personality changes, inability to concentrate, lethargy, and progressive loss of consciousness. Other neurological symptoms may include myoclonus (involuntary twitching of a muscle or group of muscles), nystagmus (rapid, involuntary eye movement), tremor, muscle atrophy and weakness, dementia, seizures, and loss of ability to swallow or speak. Blood tests, spinal fluid examination, imaging studies, electroencephalograms, and similar diagnostic studies may be used to differentiate the various causes of encephalopathy. Please clarify and document your clinical opinion in the progress notes and discharge summary. Terms such as "probable", "suspected", "likely", "questionable", "possible", or "still to be ruled out" are acceptable. IF IN AGREEMENT, YOU MUST DOCUMENT ABOVE DIAGNOSTIC STATEMENT IN DAILY PROGRESS NOTES AND DISCHARGE SUMMARY. This document is not part of the patient's record. Thank You, Ibrahima Bulter RN [phone]
[2016-08-11] MEDS ORDERED: CYANOCOBALAMIN 1000 MCG/ML VIAL IM ONE (12:00)
[2016-08-11] MEDS: CEFTRIAXONE SOD INJ 1 GM in DEXTROSE 5% ADD-VANTAGE 50ML 50 ML IV SCH (12:49)
--- NOTE | 2016-08-11 13:45 | DIAGNOSTIC IMAGING REPORT ---
RIGHT ELBOW 2 VIEWS CLINICAL HISTORY: Right elbow pain. FINDINGS: AP and lateral portable views of the right elbow are obtained. No prior studies are available for comparison at the time of dictation. The examination is significantly degraded by suboptimal positioning. The skeletal structures are osteopenic. There is no clear radiographic evidence of fracture. The joint spaces appear preserved. There is no joint effusion identified. Mild soft tissue sinus present in the imaged right upper extremity. A small enthesophyte is present the triceps insertion. IMPRESSION: Soft tissue swelling with no acute fracture identified. Note that the examination is significantly degraded by suboptimal positioning. If there is strong clinical concern for occult fracture consider short-term radiographic follow-up. Electronically signed by: Branden Saravia M.D. 08/11/2016 1:43 PM Dictated Date/Time: 08/11/2016 1:41 PM
[2016-08-11] MEDS: SODIUM CHLORIDE 0.9% 1000ML 1,000 ML IV SCH (14:01)
--- NOTE | 2016-08-11 14:03 | Progress Note ---
Internal Med Progress Note Date of Service: Aug 11, 2016. Provider Documentation: SUBJECTIVE: Patient is seen and examined at bedside. Currently oriented X 3. Denies any chest pain, SOB at rest. Denies any other complaints. Intermittently confused per staff. OBJECTIVE: Vital Signs-as noted below Physical Exam: General Appearance:Moderately built and nourished, no apparent distress Head: normocephalic, Atraumatic Eyes: normal inspection, EOMI, PERRLA Neck: supple, no JVD, Trachea midline Respiratory/Chest: Decreased breath sounds, CTA, No accessory muscle use Cardiovascular: S1, S2, NSR, No murmur Abdomen/GI:Soft, Non tender, Bowel sounds present, No guarding/rigidity/ organomegaly Extremities/Musculoskelatal:normal inspection, no edema, Right UE in sling Neurologic/Psych:AAOX3, grossly no focal neurological deficits Skin: normal color, warm Lab data as noted below. ASSESSMENT & PLAN: Patient is an 85 yr old male presents to the ED with altered mental status ALTERED MENTAL STATUS:ENCEPHALOPATHY Improving Continue monitoring in tele Likely secondary to prednisone, pneumonia, medications CT head: negative for acute processes PCR Flu: Negative, urine tox screen:Negative B12: S/P IM dose of Vit B12 TSH: wnl Prednisone dose changed back to chronic 10mg daily Gentle IVF Fall precautions ZULLY: Likely secondary to Bactrim Cr levels: 1.7 today Start IV fluids Check renal ultrasound Hematuria on initial UA, recheck UA Avoid nephrotoxic agents LEUKOCYTOSIS/ELEVATED LACTATE Resolved Likely secondary to prednisone use Lactate:wnl -CXR without pneumonia Complete the IV antibiotics course for pneumonia Flu PCR: negative FU Blood cultures, urine culture SEVERE COPD WITH RECENT CAP CXR: without acute processes S/P prednisone and Bactrim for 3 days Continue prednisone, IV antibiotics on chronic oxygen therapy, saturating well continue home inhalers,nebs RIGHT HUMERUS FRACTURE s/p mechanical fall continue sling, norco prn HYPOTHYROIDISM TSH:WNL continue Synthroid PAROXYSMAL AFIB currently in sinus rhythm not a candidate for care home anticoagulation continue Amiodarone, Aspirin ANXIETY continue Ativan prn HLD h/o statin intolerance PERIPHERAL VASCULAR DISEASE continue Aspirin, Imdur H/O THORACIC AORTIC ANEURYSM 3.9 cm on last check follow up with PCP DVT PROPHYLAXIS: Sq heparin CODE STATUS: LEVEL 5 DNR per my discussion with the patient and his son DISPOSITION: Continue monitoring in Tele PT/OT Vital Signs: Date Time Temp Pulse Resp B/P Pulse Ox O2 Delivery O2 Flow Rate FiO2 08/11/16 16:00 94 Nasal Cannula 4.0 08/11/16 15:40 36.7 78 18 128/71 93 Nasal Cannula 2.0 08/11/16 12:15 Nasal Cannula 4.0 08/11/16 11:25 36.9 75 18 133/80 90 Room Air 08/11/16 08:08 Nasal Cannula 2.0 08/11/16 07:18 36.7 86 18 113/66 84 Nasal Cannula 2.0 08/11/16 04:00 Nasal Cannula 2.0 08/11/16 03:15 37.1 82 20 118/71 92 Nasal Cannula 2.0 08/11/16 00:21 36.8 75 20 133/77 92 Nasal Cannula 2.0 08/11/16 00:00 Nasal Cannula 2.0 08/10/16 20:00 Nasal Cannula 2.0 08/10/16 19:51 36.8 80 18 157/77 90 Nasal Cannula 2.0 Lab Results: Results Past 24 Hours Test 08/10/16 19:50 08/10/16 23:40 08/11/16 05:20 Range/Units Influenza Type A (RT-PCR) Neg for Influ A NEG Influenza Type B (RT-PCR) Neg for Influ B NEG Urine Opiates Screen NEG NEG Urine Methadone, Qualitative NEG NEG Urine Barbiturates NEG NEG Urine Phencyclidine (PCP) Level NEG NEG Ur Amphetamine/Methamphetamine NEG NEG MDMA (Ecstasy) Screen NEG NEG Urine Benzodiazepines Screen NEG NEG Urine Cocaine Metabolite NEG NEG Urine Marijuana (THC) NEG NEG White Blood Count 8.80 4.8-10.8 K/uL Red Blood Count 2.99 4.7-6.1 M/uL Hemoglobin 9.8 14.0-18.0 g/dL Hematocrit 30.0 42-52 % Mean Corpuscular Volume 100.3 80-100 fL Mean Corpuscular Hemoglobin 32.8 25-34 pg Mean Corpuscular Hemoglobin Concent 32.7 32-36 g/dl RDW Standard Deviation 59.1 36.4-46.3 fL RDW Coefficient of Variation 16.3 11.5-14.5 % Platelet Count 116 130-400 K/uL Mean Platelet Volume 10.5 7.4-10.4 fL Sodium Level 144 136-145 mmol/L Potassium Level 3.7 3.5-5.1 mmol/L Chloride Level 109 98-107 mmol/L Carbon Dioxide Level 25 21-32 mmol/L Anion Gap 10.0 3-11 mmol/L Blood Urea Nitrogen 34 7-18 mg/dl Creatinine 1.70 0.60-1.40 mg/dl Est Creatinine Clear Calc Drug Dose 30.2 ml/min Estimated GFR () 42.0 Estimated GFR (Non- 36.2 BUN/Creatinine Ratio 20.0 10-20 Random Glucose 76 70-99 mg/dl Calcium Level 8.3 8.5-10.1 mg/dl Magnesium Level 1.8 1.8-2.4 mg/dl 25-Hydroxy Vitamin D Total 14.2 30-100 ng/ml Microbiology Results 08/10/16 Gram Stain - Final, Complete 08/10/16 Sputum Culture - Final, Complete 08/10/16 Urine Culture, Received Pending
--- NOTE | 2016-08-11 14:12 | CONSULTATION REPORT ---
DATE OF CONSULTATION: 08/11/2016 REASON FOR CONSULT: Right proximal humerus fracture. HISTORY OF PRESENT ILLNESS: The patient is an 85-year-old white male, who was seen in the Emergency Room on 08/07/2016 after a mechanical fall. At that point in time, he had x-rays done and showed a humeral head fracture that was minimally displaced. At that time, he was put in an arm sling and was going to follow up with [facility] thereafter. The patient was readmitted on the for altered mental status and we have been consulted to see him for his right shoulder. PAST MEDICAL HISTORY: History of abdominal aortic aneurysm, 4.4 cm noted on 06/11/2015, abdominal hernia, carotid artery stenosis, COPD, dyslipidemia, colon polyps, history of C. diff in the past, DVT in the past, pulmonary embolism in the past, hypothyroidism, peripheral vascular disease, pulmonary nodules, and wandering atrial pacemaker. PAST SURGICAL HISTORY: IVC filter placement, abdominal aortic aneurysm repair, carotid endarterectomy, and colonoscopy. FAMILY AND SOCIAL HISTORY: As per admitting history and physical. ALLERGIES: CIPROFLOXACIN, LEVOFLOXACIN, AMOXICILLIN, CODEINE, DOXYCYCLINE, MORPHINE AND ROFLUMILAST. MEDICATIONS: Fosamax 70 mg p.o. weekly, amiodarone 200 mg p.o. daily, aspirin 81 mg p.o. daily, doxycycline 100 mg p.o. daily, guaifenesin 600 mg p.o. as directed, Isordil 20 mg p.o. b.i.d., probiotic 1 cap p.o. t.i.d. with meals, levothyroxine 1 tab p.o. daily, omeprazole 20 mg p.o. daily, oxygen 4 liters nasally continuous, potassium chloride 1 tab p.o. daily, prednisone tab 10 mg p.o. daily, Bactrim-DS 800/160 one tab p.o. b.i.d., Spiriva HandiHaler 1 cap inhaled daily, Tylenol 650 mg p.o. q. 4 hours p.r.n., albuterol 2 puffs inhaled q. 4 hours p.r.n., docusate sodium 1 cap p.o. daily p.r.n., furosemide 1 tab p.o. weekly p.r.n. for edema, [place] 5/325 one tab p.o. q. 4 hours p.r.n., DuoNeb 1 treatment inhaled q. 4 hours p.r.n., lorazepam 0.5 mg p.o. q. 8 hours p.r.n. for anxiety, MiraLax 17 grams p.o. daily p.r.n., prednisone 10 mg p.o. daily p.r.n. and Bactrim-DS 1 tab p.o. b.i.d. p.r.n. for COPD rescue kit. REVIEW OF SYSTEMS: As per admitting history and physical. PHYSICAL EXAMINATION: GENERAL: On walking into the room, the patient is asleep, but is easily awoken. He answers most questions appropriately; however, seems slightly confused on where he is at currently. He states that he did have a fall one time and that his shoulder has been feeling better. He states that he has some pain in the right elbow as well today and states that it cracks a little bit when he moves it. He has no pain or tenderness in the right wrist or fingers and has good sensation and good strength in the hand. He has some mild tenderness over the right elbow, but I cannot appreciate any crepitus during range of motion and he has good range of motion at this time. The shoulder is tender on palpation and has some mild swelling noted compared to the left. I have left the range of motion to minimal at this point in time secondary to fracture. ASSESSMENT: Humeral head fracture. PLAN: X-rays were reviewed with Dr. Ceja today and we will continue to use the sling on a regular basis for this gentleman. No active range of motion at this time with the right shoulder. Sling can be removed to go through elbow and wrist range of motion with his right elbow tenderness on palpation and slightly with the range of motion, we will go ahead and get an elbow film of the right elbow just to rule out any irregularities, but for the most part the patient will be in a sling for a good portion of his time to limit his range of motion of his right shoulder. No active range of motion at this time with the right shoulder and plans will be to continue elbow and wrist range of motion regularly, unless something comes up on the elbow film. We will follow films as they are done and the patient can follow up in the office on an outpatient basis with either Dr. Ceja or Dr. Vieyra for further care upon discharge.
--- NOTE | 2016-08-11 15:57 | DIAGNOSTIC IMAGING REPORT ---
ULTRASOUND KIDNEYS AND BLADDER CLINICAL HISTORY: Acute renal insufficiency. COMPARISON STUDY: Abdominal CT dated 08/13/15. TECHNIQUE: Real-time, grayscale, and color flow sonography of the kidneys and bladder is performed. Images are reviewed in the transverse and longitudinal planes. FINDINGS: Kidneys: The kidneys are atrophic. The right kidney measures 8.7 x 4.4 x 5.3 cm and the left kidney measures 9.6 x 5.9 x 4.5 cm. There is no hydronephrosis. No shadowing renal calculi are identified. There is no sonographic evidence of contour deforming renal mass lesion. No perinephric fluid is identified. Bladder: The bladder is normal in appearance. Bilateral ureteral jets were seen. IMPRESSION: 1. The kidneys are atrophic and without hydronephrosis. 2. The bladder is normal as visualized. Electronically signed by: Branden Saravia M.D. 08/11/2016 3:56 PM Dictated Date/Time: 08/11/2016 3:55 PM
[2016-08-12] VITALS (7 sets, daily range): BP systolic 100–156; BP diastolic 63–83; PULSE 62–88; TEMP 36.5–36.8; O2SAT 90–92
[2016-08-12 06:21] LABS: BASO % 0.5 %; BASO ABS # 0.04 K/uL (0-0.2); COMPLETE YES; HEMATOCRIT 28.3 % (42-52); LYMPH % 7.7 %; LYMPH ABS # 0.65 K/uL (1.2-3.4); MEAN CELL VOLUME 98.3 fL (80-100); MEAN CORPUSCULAR HGB CONC 33.6 g/dl (32-36); MEAN PLATELET VOLUME 10.8 fL (7.4-10.4); MONO % 10.2 %; NEUT % 75.6 %; PLATELET COUNT 125 K/uL (130-400); RED BLOOD COUNT 2.88 M/uL (4.7-6.1); WHITE BLOOD COUNT 8.41 K/uL (4.8-10.8)
[2016-08-12] MEDS: LEVOTHYROXINE 100 MCG TAB PO SCH (06:28)
[2016-08-12] MEDS: HEPARIN SOD 5000 UNIT/0.5 ML CARP SQ SCH ×3 (06:29→19:49)
[2016-08-12] MEDS: ISOSORBIDE DINITRATE 20 MG TAB PO SCH ×2 (07:01→12:24)
[2016-08-12 07:10] LABS: BUN/CREATININE RATIO 23.1 (10-20); CALCIUM 8.2 mg/dl (8.5-10.1); CREATININE 1.5 mg/dl (0.60-1.40); POTASSIUM 4.2 mmol/L (3.5-5.1)
[2016-08-12] MEDS: AZITHROMYCIN 250 MG TAB PO SCH (08:56)
[2016-08-12] MEDS: TIOTROPIUM BROMIDE 5 PUFF/90 MCG INH INH SCH (09:00)
[2016-08-12] MEDS: ASPIRIN 81 MG ECTAB PO SCH (10:01)
[2016-08-12] MEDS: AMIODARONE 200 MG TAB PO SCH (10:01)
[2016-08-12] MEDS: POTASSIUM CHLORIDE 10 MEQ TABCR PO SCH (10:02)
[2016-08-12] MEDS: PANTOprazole SOD 40 MG TAB PO SCH (10:02)
[2016-08-12] MEDS: GUAIFENESIN 600 MG TABCR PO SCH ×2 (10:02→19:49)
[2016-08-12] MEDS: SODIUM CHLORIDE 0.9% 1000ML 1,000 ML IV SCH (10:06)
[2016-08-12] MEDS: CEFTRIAXONE SOD INJ 1 GM in DEXTROSE 5% ADD-VANTAGE 50ML 50 ML IV SCH (12:23)
--- NOTE | 2016-08-12 14:47 | Orthopedic Progress Note ---
Orthopedic Progress Note Date of Service Aug 12, 2016. Subjective Additional Notes: Pt resting comfortably. States he's feeling a little better today. Objective CMS intact Sling in place. Pt moving elbow well without pain during flexion / extension. States he has mild discomfort in the upper portion of his arm if he supinates the arm too hard. No overt elbow pain today. Date Time Temp Pulse Resp B/P Pulse Ox O2 Delivery O2 Flow Rate FiO2 08/12/16 12:00 Nasal Cannula 4.0 08/12/16 11:31 36.6 65 16 113/66 90 Nasal Cannula 4.0 08/12/16 08:50 36.6 77 18 100/63 91 Room Air 08/12/16 08:00 91 Nasal Cannula 4.0 08/12/16 07:00 72 119/73 08/12/16 04:26 36.5 72 20 156/78 91 Nasal Cannula 4.0 08/12/16 04:00 Nasal Cannula 4.0 08/12/16 00:00 Nasal Cannula 4.0 08/11/16 23:57 36.7 70 20 138/75 90 Nasal Cannula 4.0 08/11/16 20:00 Nasal Cannula 4.0 08/11/16 19:51 37.1 82 20 127/73 96 Nasal Cannula 4.0 08/11/16 16:00 94 Nasal Cannula 4.0 08/11/16 15:40 36.7 78 18 128/71 93 Nasal Cannula 2.0 Laboratory Results 24 Hours: Test 08/12/16 05:26 White Blood Count 8.41 K/uL Red Blood Count 2.88 M/uL Hemoglobin 9.5 g/dL Hematocrit 28.3 % Mean Corpuscular Volume 98.3 fL Mean Corpuscular Hemoglobin 33.0 pg Mean Corpuscular Hemoglobin Concent 33.6 g/dl Platelet Count 125 K/uL Mean Platelet Volume 10.8 fL Neutrophils (%) (Auto) 75.6 % Lymphocytes (%) (Auto) 7.7 % Monocytes (%) (Auto) 10.2 % Eosinophils (%) (Auto) 3.0 % Basophils (%) (Auto) 0.5 % Neutrophils # (Auto) 6.36 K/uL Lymphocytes # (Auto) 0.65 K/uL Monocytes # (Auto) 0.86 K/uL Eosinophils # (Auto) 0.25 K/uL Basophils # (Auto) 0.04 K/uL Assessment & Plan Assessment: Right Humeral Head Fx Plan: Continue Sling at all times except for showering or getting dressed. No active ROM of the shoulder. Ok to do gentle ROM of the elbow/wrist No apparent fx of right elbow Pt will likely need a rehab stay vs snf prior to return home. Ortho will sign off at this time. Please call with any questions.
--- NOTE | 2016-08-12 18:18 | Progress Note ---
Internal Med Progress Note Date of Service: Aug 12, 2016. Provider Documentation: SUBJECTIVE: Patient is seen and examined at bedside. Confusion seems to be completely resolved. Denies any chest pain, SOB at rest. Denies any other complaints. OBJECTIVE: Vital Signs-as noted below Physical Exam: General Appearance:Moderately built and nourished, no apparent distress Head: normocephalic, Atraumatic Eyes: normal inspection, EOMI, PERRLA Neck: supple, no JVD, Trachea midline Respiratory/Chest: Decreased breath sounds, CTA, No accessory muscle use Cardiovascular: S1, S2, NSR, No murmur Abdomen/GI:Soft, Non tender, Bowel sounds present, No guarding/rigidity/ organomegaly Extremities/Musculoskelatal:normal inspection, no edema, Right UE in sling Neurologic/Psych:AAOX3, grossly no focal neurological deficits Skin: normal color, warm Lab data as noted below. ASSESSMENT & PLAN: Patient is an 85 yr old male presents to the ED with altered mental status ALTERED MENTAL STATUS:ENCEPHALOPATHY Resolved Continue monitoring in tele Likely secondary to prednisone, pneumonia, medications CT head: negative for acute processes PCR Flu: Negative, urine tox screen:Negative B12: S/P IM dose of Vit B12 TSH: wnl Prednisone dose changed back to chronic 10mg daily Gentle IVF Fall precautions ZULLY: Likely secondary to Bactrim Improving Cr levels: 1.5 today Continue IV fluids Renal ultrasound: No hydronephrosis Avoid nephrotoxic agents LEUKOCYTOSIS/ELEVATED LACTATE Resolved Likely secondary to prednisone use Lactate:wnl CXR without pneumonia Complete the IV antibiotics course for pneumonia Flu PCR: negative FU Blood cultures, urine culture: Negative to date SEVERE COPD WITH RECENT CAP CXR: without acute processes S/P prednisone and Bactrim for 3 days Continue prednisone, IV antibiotics on chronic oxygen therapy, saturating well continue home inhalers,nebs RIGHT HUMERUS FRACTURE s/p mechanical fall continue sling, norco prn Appreciate Ortho input May benefit from Rehab: SNF PT/OT recommends SNF HYPOTHYROIDISM TSH:WNL continue Synthroid PAROXYSMAL AFIB currently in sinus rhythm 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0 08/12/16 11:31 36.6 65 16 113/66 90 Nasal Cannula 4.0 08/12/16 08:50 36.6 77 18 100/63 91 Room Air 08/12/16 08:00 91 Nasal Cannula 4.0 08/12/16 07:00 72 119/73 08/12/16 04:26 36.5 72 20 156/78 91 Nasal Cannula 4.0 08/12/16 04:00 Nasal Cannula 4.0 08/12/16 00:00 Nasal Cannula 4.0 08/11/16 23:57 36.7 70 20 138/75 90 Nasal Cannula 4.0 08/11/16 20:00 Nasal Cannula 4.0 08/11/16 19:51 37.1 82 20 127/73 96 Nasal Cannula 4.0 Lab Results: Results Past 24 Hours Test 08/12/16 05:26 Range/Units White Blood Count 8.41 4.8-10.8 K/uL Red Blood Count 2.88 4.7-6.1 M/uL Hemoglobin 9.5 14.0-18.0 g/dL Hematocrit 28.3 42-52 % Mean Corpuscular Volume 98.3 80-100 fL Mean Corpuscular Hemoglobin 33.0 25-34 pg Mean Corpuscular Hemoglobin Concent 33.6 32-36 g/dl Platelet Count 125 130-400 K/uL Mean Platelet Volume 10.8 7.4-10.4 fL Neutrophils (%) (Auto) 75.6 % Lymphocytes (%) (Auto) 7.7 % Monocytes (%) (Auto) 10.2 % Eosinophils (%) (Auto) 3.0 % Basophils (%) (Auto) 0.5 % Neutrophils # (Auto) 6.36 1.4-6.5 K/uL Lymphocytes # (Auto) 0.65 1.2-3.4 K/uL Monocytes # (Auto) 0.86 0.11-0.59 K/uL Eosinophils # (Auto) 0.25 0-0.5 K/uL Basophils # (Auto) 0.04 0-0.2 K/uL RDW Standard Deviation 58.4 36.4-46.3 fL RDW Coefficient of Variation 16.2 11.5-14.5 % Immature Granulocyte % (Auto) 3.0 % Immature Granulocyte # (Auto) 0.25 0.00-0.02 K/uL Sodium Level 145 136-145 mmol/L Potassium Level 4.2 3.5-5.1 mmol/L Chloride Level 110 98-107 mmol/L Carbon Dioxide Level 25 21-32 mmol/L Anion Gap 10.0 3-11 mmol/L Blood Urea Nitrogen 35 7-18 mg/dl Creatinine 1.50 0.60-1.40 mg/dl Est Creatinine Clear Calc Drug Dose 34.3 ml/min Estimated GFR () 48.8 Estimated GFR (Non- 42.1 BUN/Creatinine Ratio 23.1 10-20 Random Glucose 74 70-99 mg/dl Calcium Level 8.2 8.5-10.1 mg/dl
--- NOTE | 2016-08-12 18:26 | Progress Note ---
Orthopedic SOAP Note Subjective Date of Service: Aug 12, 2016. Reports: feeling well, pain controlled w PO medications Problem List Medical Problems: (1) Abdominal wall strain Status: Acute (2) Altered mental status Status: Acute (3) Altered mental status Status: Acute (4) Ambulatory dysfunction Status: Acute (5) Atrial fibrillation with RVR Status: Acute (6) Cholelithiasis Status: Acute (7) Chronic pulmonary embolism Status: Acute (8) COPD exacerbation Status: Acute (9) Dehydration Status: Acute (10) Generalized weakness Status: Acute (11) Hypotension Status: Acute (12) Hypoxia Permanent Comment: Reason for Deletion: Status: Acute (13) Intractable pain Status: Acute (14) Lactic acidosis Status: Acute (15) Leukocytosis Status: Acute (16) Low back pain Status: Acute (17) Lumbar stress fracture Status: Acute (18) Rapid atrial fibrillation Status: Acute (19) Right sided abdominal pain Status: Acute Objective N/V intact immobilizer adjusted,elbow rom pain free,dependent ecchymosis from fx Date Time Temp Pulse Resp B/P Pulse Ox O2 Delivery O2 Flow Rate FiO2 08/12/16 16:08 36.8 88 114/65 90 4.0 08/12/16 16:00 Nasal Cannula 4.0 08/12/16 12:00 Nasal Cannula 4.0 08/12/16 11:31 36.6 65 16 113/66 90 Nasal Cannula 4.0 08/12/16 08:50 36.6 77 18 100/63 91 Room Air 08/12/16 08:00 91 Nasal Cannula 4.0 08/12/16 07:00 72 119/73 08/12/16 04:26 36.5 72 20 156/78 91 Nasal Cannula 4.0 08/12/16 04:00 Nasal Cannula 4.0 08/12/16 00:00 Nasal Cannula 4.0 08/11/16 23:57 36.7 70 20 138/75 90 Nasal Cannula 4.0 08/11/16 20:00 Nasal Cannula 4.0 08/11/16 19:51 37.1 82 20 127/73 96 Nasal Cannula 4.0 Laboratory Results 24 Hours: Test 08/12/16 05:26 White Blood Count 8.41 K/uL Red Blood Count 2.88 M/uL Hemoglobin 9.5 g/dL Hematocrit 28.3 % Mean Corpuscular Volume 98.3 fL Mean Corpuscular Hemoglobin 33.0 pg Mean Corpuscular Hemoglobin Concent 33.6 g/dl Platelet Count 125 K/uL Mean Platelet Volume 10.8 fL Neutrophils (%) (Auto) 75.6 % Lymphocytes (%) (Auto) 7.7 % Monocytes (%) (Auto) 10.2 % Eosinophils (%) (Auto) 3.0 % Basophils (%) (Auto) 0.5 % Neutrophils # (Auto) 6.36 K/uL Lymphocytes # (Auto) 0.65 K/uL Monocytes # (Auto) 0.86 K/uL Eosinophils # (Auto) 0.25 K/uL Basophils # (Auto) 0.04 K/uL Assessment Right Humeral Head Fx Plan Continue Sling at all times except for showering or getting dressed. No active ROM of the shoulder. Ok to do gentle ROM of the elbow/wrist No apparent fx of right elbow Pt will likely need a rehab stay vs snf prior to return home. Ortho will sign off at this time. Please call with any questions.
[2016-08-13 00:04] VITALS: BP 136/73; PULSE 60; TEMP 36.6; O2SAT 91
[2016-08-13 04:00] VITALS: BP 160/71; PULSE 62; TEMP 36.2; O2SAT 92
[2016-08-13] MEDS: ISOSORBIDE DINITRATE 20 MG TAB PO SCH ×2 (06:13→13:42)
[2016-08-13] MEDS: LEVOTHYROXINE 100 MCG TAB PO SCH (06:13)
[2016-08-13] MEDS: HEPARIN SOD 5000 UNIT/0.5 ML CARP SQ SCH ×2 (06:13→13:41)
[2016-08-13] MEDS: SODIUM CHLORIDE 0.9% 1000ML 1,000 ML IV SCH (06:14)
[2016-08-13 07:31] LABS: HEMATOCRIT 29.7 % (42-52); MEAN CELL VOLUME 99.3 fL (80-100); MEAN CORPUSCULAR HEMOGLOBIN 32.8 pg (25-34); MEAN PLATELET VOLUME 10.5 fL (7.4-10.4); PLATELET COUNT 137 K/uL (130-400); RED BLOOD COUNT 2.99 M/uL (4.7-6.1); WHITE BLOOD COUNT 8.16 K/uL (4.8-10.8)
[2016-08-13 07:46] VITALS: BP 119/72; PULSE 75; TEMP 36.5; O2SAT 96
[2016-08-13 08:03] LABS: BASO % 0.1 %; BASO ABS # 0.01 K/uL (0-0.2); BUN/CREATININE RATIO 26.1 (10-20); CALCIUM 8.3 mg/dl (8.5-10.1); COMPLETE YES; CREATININE 1.2 mg/dl (0.60-1.40); ECHINOCYTES 1+; EOS % 2.9 %; GIANT PLATELETS 1+; IG% 2.6 %; LYMPH ABS # 0.57 K/uL (1.2-3.4); MONO % 10.7 %; NEUT % 76.7 %; POLYCHROMASIA 1+; POTASSIUM 3.6 mmol/L (3.5-5.1); TOXIC GRANULATION 1+; VACUOLIZATION 1+
[2016-08-13] MEDS: AMIODARONE 200 MG TAB PO SCH (08:28)
[2016-08-13] MEDS: PANTOprazole SOD 40 MG TAB PO SCH (08:28)
[2016-08-13] MEDS: AZITHROMYCIN 250 MG TAB PO SCH (08:28)
[2016-08-13] MEDS: POTASSIUM CHLORIDE 10 MEQ TABCR PO SCH (08:29)
[2016-08-13] MEDS: ASPIRIN 81 MG ECTAB PO SCH (08:29)
[2016-08-13] MEDS: GUAIFENESIN 600 MG TABCR PO SCH (08:30)
[2016-08-13] MEDS: TIOTROPIUM BROMIDE 5 PUFF/90 MCG INH INH SCH (08:30)
--- NOTE | 2016-08-13 10:56 | Progress Note ---
Internal Med Progress Note Date of Service: Aug 13, 2016. Provider Documentation: SUBJECTIVE: Patient is seen and examined at bedside. Feels well. Offers no complaints. Denies any chest pain, SOB at rest. Family at bedside. OBJECTIVE: Vital Signs-as noted below Physical Exam: General Appearance:Moderately built and nourished, no apparent distress Head: normocephalic, Atraumatic Eyes: normal inspection, EOMI, PERRLA Neck: supple, no JVD, Trachea midline Respiratory/Chest: Decreased breath sounds, CTA, No accessory muscle use Cardiovascular: S1, S2, NSR, No murmur Abdomen/GI:Soft, Non tender, Bowel sounds present, No guarding/rigidity/ organomegaly Extremities/Musculoskelatal:normal inspection, no edema, Right UE in sling Neurologic/Psych:AAOX3, grossly no focal neurological deficits Skin: normal color, warm Lab data as noted below. ASSESSMENT & PLAN: Patient is an 85 yr old male presents to the ED with altered mental status ALTERED MENTAL STATUS:ENCEPHALOPATHY Resolved Continue monitoring in tele Likely secondary to prednisone, pneumonia, medications CT head: negative for acute processes PCR Flu: Negative, urine tox screen:Negative B12: S/P IM dose of Vit B12 : Needs outpatient follow up (Vit B12: 173) TSH: wnl Prednisone dose changed back to chronic 10mg daily Fall precautions ZULLY: Likely secondary to Bactrim Resolved Cr levels: 1.2 today DC IV fluids Renal ultrasound: No hydronephrosis Avoid nephrotoxic agents LEUKOCYTOSIS/ELEVATED LACTATE Resolved Likely secondary to prednisone use Lactate:wnl CXR without pneumonia S/P IV Azithro and ceftriaxone during hospitalization (Completed 3 days of Bactrim prior to admission) Flu PCR: negative FU Blood cultures, urine culture: Negative to date SEVERE COPD WITH RECENT CAP CXR: without acute processes S/P prednisone and Bactrim for 3 days prior to admission Continue prednisone S/P IV Azithro and ceftriaxone during hospitalization on chronic oxygen therapy, saturating well continue home inhalers,nebs RIGHT HUMERUS FRACTURE s/p mechanical fall continue sling, norco prn Appreciate Ortho input May benefit from Rehab: SNF PT/OT recommends SNF but patient and family prefers to go home with home health Continue Sling at all times except for showering or getting dressed No active ROM of the shoulder. 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 continue Amiodarone, Aspirin ANXIETY continue Ativan prn HLD h/o statin intolerance PERIPHERAL VASCULAR DISEASE continue Aspirin, Imdur H/O THORACIC AORTIC ANEURYSM 3.9 cm on last check follow up with PCP DVT PROPHYLAXIS: Sq heparin CODE STATUS: LEVEL 5 DNR per my discussion with the patient and his son DISPOSITION: Plan to discharge today: Home with home health Chief Of Surgery consulted Needs Vit B12 shots as outpatient Follow up with : on 08/17/16 at 2:00pm Vital Signs: Date Time Temp Pulse Resp B/P Pulse Ox O2 Delivery O2 Flow Rate FiO2 08/13/16 07:46 36.5 75 18 119/72 96 4.0 08/13/16 04:00 36.2 62 18 160/71 92 Nasal Cannula 4.0 08/13/16 04:00 Nasal Cannula 4.0 08/13/16 00:04 36.6 60 18 136/73 91 2.0 08/13/16 00:00 Nasal Cannula 4.0 08/12/16 20:00 Nasal Cannula 4.0 08/12/16 19:41 36.6 62 18 147/83 92 Room Air 08/12/16 16:08 36.8 88 114/65 90 4.0 08/12/16 16:00 Nasal Cannula 4.0 08/12/16 12:00 Nasal Cannula 4.0 08/12/16 11:31 36.6 65 16 113/66 90 Nasal Cannula 4.0 Lab Results: Results Past 24 Hours Test 08/13/16 06:56 Range/Units White Blood Count 8.16 4.8-10.8 K/uL Red Blood Count 2.99 4.7-6.1 M/uL Hemoglobin 9.8 14.0-18.0 g/dL Hematocrit 29.7 42-52 % Mean Corpuscular Volume 99.3 80-100 fL Mean Corpuscular Hemoglobin 32.8 25-34 pg Mean Corpuscular Hemoglobin Concent 33.0 32-36 g/dl Platelet Count 137 130-400 K/uL Mean Platelet Volume 10.5 7.4-10.4 fL Neutrophils (%) (Auto) 76.7 % Lymphocytes (%) (Auto) 7.0 % Monocytes (%) (Auto) 10.7 % Eosinophils (%) (Auto) 2.9 % Basophils (%) (Auto) 0.1 % Neutrophils # (Auto) 6.26 1.4-6.5 K/uL Lymphocytes # (Auto) 0.57 1.2-3.4 K/uL Monocytes # (Auto) 0.87 0.11-0.59 K/uL Eosinophils # (Auto) 0.24 0-0.5 K/uL Basophils # (Auto) 0.01 0-0.2 K/uL RDW Standard Deviation 58.1 36.4-46.3 fL RDW Coefficient of Variation 16.1 11.5-14.5 % Immature Granulocyte % (Auto) 2.6 % Immature Granulocyte # (Auto) 0.21 0.00-0.02 K/uL Toxic Granulation 1+ Toxic Vacuolation 1+ Giant Platelets 1+ Polychromasia 1+ Echinocytes 1+ Sodium Level 142 136-145 mmol/L Potassium Level 3.6 3.5-5.1 mmol/L Chloride Level 108 98-107 mmol/L Carbon Dioxide Level 21 21-32 mmol/L Anion Gap 13.0 3-11 mmol/L Blood Urea Nitrogen 31 7-18 mg/dl Creatinine 1.20 0.60-1.40 mg/dl Est Creatinine Clear Calc Drug Dose 42.9 ml/min Estimated GFR () 64.0 Estimated GFR (Non- 55.2 BUN/Creatinine Ratio 26.1 10-20 Random Glucose 68 70-99 mg/dl Calcium Level 8.3 8.5-10.1 mg/dl
--- NOTE | 2016-08-13 11:27 | Discharge Summary ---
Discharge Summary Admission Date: Aug 10, 2016 at 13:40 Discharge Date: Aug 13, 2016 Discharge Disposition: Home with services Principal Diagnosis: Encephalopathy, ZULLY Procedures: CT Head: No acute process. Age-related change. CXR: No acute findings. No change in appearance of the chest with stable bilateral lower lung interstitial thickening and underlying emphysema Elbow X ray: Soft tissue swelling with no acute fracture identified. Note that the examination is significantly degraded by suboptimal positioning. If there is strong clinical concern for occult fracture consider short-term radiographic follow-up. Renal USD: 1. The kidneys are atrophic and without hydronephrosis. 2. The bladder is normal as visualized. Consultations: Orthopedics Pending Studies/Follow-Up: Follow up with on 08/17/16 at 2:00PM Seek immediate medical attention if your symptoms reoccur or worsen Follow up with your doctor regarding Vit B12 injections Medication Reconciliation Continued Medications: Acetaminophen (Tylenol) 325 Mg Tab 650 MG PO Q4 PRN for Pain or Fever, TAB NOT TO EXCEED 6 TABLETS IN 24HR Albuterol Sulfate (Proair Respiclick) 108 Mcg/Act Aer 2 PUFF INH Q4 PRN for SOB/Wheezing Alendronate Sodium (Fosamax) 70 Mg Tab 70 MG PO WK, TAB Amiodarone HCl (Amiodarone HCl) 200 Mg Tab 200 MG PO DAILY, TAB Aspirin (Aspirin) 81 Mg Tab 81 MG PO DAILY Docusate Sodium (Colace) 100 Mg Cap 1 CAP PO DAILY PRN for Constipation for 30 Days, #30 CAP Doxycycline Hyclate (Doxycycline Hyclate) 100 Mg Cap 100 MG PO DAILY Furosemide (Furosemide) 20 Mg Tab 1 TAB PO WK PRN for EDEMA Guaifenesin La (Guaifenesin Er) 600 Mg Tabcr 600 MG PO UD, TAB 600 mg tabs. Take 2 tabs (1200 mg) by mouth in AM. Take 1 tab (600 mg) by mouth in PM. Hydrocodone/Acetaminophen 5MG/325MG ([place] 5MG/325MG) Tab 1 TABLET PO Q4 PRN for Pain, TAB PRN PAIN Ipratropium-Albuterol (Duoneb) 3 Ml Nebu 1 TREATMENT INH Q4H PRN for SOB/Wheezing, INHA Isosorbide Dinitrate (Isordil) 20 Mg Tab 20 MG PO BID, TAB Lactobacillus (Probiotic) Unknown Strength Cap 1 CAP PO TIDM Levothyroxine Sodium (Levothyroxine Sodium) 100 Mcg Tab 1 TAB PO DAILY for 90 Days, #90 TAB 3 Refills Lorazepam (Ativan) 0.5 Mg Tab 0.5 MG PO Q8 PRN for Anxiety Omeprazole (Prilosec) 20 Mg Capcr 20 MG PO DAILY, CAP Oxygen (Oxygen) Gas 4 LITERS NA CONTINOUS Polyethylene Glycol 3350 (Miralax) 1 Pow Pow 17 GM PO DAILY PRN for Constipation, #527 GM Potassium Chloride (Potassium Chloride Sr) 10 Meq Tab 1 TAB PO DAILY Prednisone Tab (Prednisone) 10 Mg Tab 10 MG PO DAILY, TAB Tiotropium [place] (Spiriva Handihaler) 30 Puff/540 Mcg Aerp 1 CAP INH DAILY, INHALER Discontinued Medications: Prednisone (Prednisone) 20 Mg Tab 2 TABS PO dailyfor 5days then1 for 10 Days, #15 TABS Prednisone Tab (Prednisone) 10 Mg Tab 10 MG PO DAILY PRN for COPD RESCUE KIT, TAB 4 tabs x 4 days, 3 tabs x 4 days ,2 tabs x 4 days, 1 tab daily to continue Sulfa/Trimethoprim (Bactrim Ds 800MG/160MG) Tab 1 TAB PO BID PRN for COPD RESCUE KIT, #6 TAB Sulfa/Trimethoprim (Bactrim Ds 800MG/160MG) Tab 1 TAB PO BID, #20 TAB Admission Information HPI (per Admitting provider): Patient seen and examined. 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 Patient reports he is here for a check up and history is taken primarily from his son. Who reports patient had a mechanical fall on 08/07. He came to the ED and was diagnosed with a right humerus fracture. He was also diagnosed with pneumonia at that time and discharged home with prednisone, Bactrim, and [place]. The next evening the patient started being very "hyper" he was talking in nonsense and started having visual hallucinations. Son reports the patient hardly slept at all. Also each morning when the patient woke up in the morning his bedsheets were wet. His son is unsure if he was incontinent and or just missed when using his urinal bottle. He reports that the patient has not had any day time incontinence. He reports in the past the patient has been hyper with higher doses of prednisone than his chronic 10mg, but has never had these other confused symptoms. Son reports that he does not think the patient has had [place] since Wednesday morning. In the ED VS are stable, POC lactate is 2.89, WBC count is 12K, CT head is negative, 1 view CXR is without acute abnormality. UA has trace leukocyte esterase and +2 RBCs. He received Rocephin and IVFs. He will be admitted for further workup and treatment. Physical Exam (per Admitting): General Appearance: + pertinent finding (WD/WN elderly 85 year old male lying in bed in NAD ) Head: normocephalic, atraumatic Eyes: PERRL, EOMI, sclerae normal ENT: hearing grossly normal, pharynx normal Neck: supple, no JVD Respiratory/Chest: chest non-tender, normal breath sounds, no respiratory distress, no accessory muscle use, + crackles (trace) Cardiovascular: regular rate, rhythm, no edema, no gallop, no JVD, normal peripheral pulses, + systolic murmur Abdomen/GI: normal bowel sounds, non tender, soft Back: normal inspection, no muscle spasm Extremities/Musculoskelatal: no calf tenderness, normal capillary refill, no pedal edema, + pertinent finding (Right arm in sling, pulses intact, no numbness or tingling ) Neurologic/Psych: + pertinent finding (Alert,& orietned x 3 no focal deficits noted ) Skin: normal color, warm/dry, no rash Lymphatic: no adenopathy Hospital Course Patient is an 85 yr old male presents to the ED with altered mental status ALTERED MENTAL STATUS:ENCEPHALOPATHY Resolved Continue monitoring in tele Likely secondary to prednisone, pneumonia, medications CT head: negative for acute processes PCR Flu: Negative, urine tox screen:Negative B12: S/P IM dose of Vit B12 : Needs outpatient follow up (Vit B12: 173) TSH: wnl Prednisone dose changed back to chronic 10mg daily Fall precautions ZULLY: Likely secondary to Bactrim Resolved Cr levels: 1.2 today DC IV fluids Renal ultrasound: No hydronephrosis Avoid nephrotoxic agents LEUKOCYTOSIS/ELEVATED LACTATE Resolved Likely secondary to prednisone use Lactate:wnl CXR without pneumonia S/P IV Azithro and ceftriaxone during hospitalization (Completed 3 days of Bactrim prior to admission) Flu PCR: negative FU Blood cultures, urine culture: Negative to date SEVERE COPD WITH RECENT CAP CXR: without acute processes S/P prednisone and Bactrim for 3 days prior to admission Continue prednisone S/P IV Azithro and ceftriaxone during hospitalization on chronic oxygen therapy, saturating well continue home inhalers,nebs RIGHT HUMERUS FRACTURE s/p mechanical fall continue sling, norco prn Appreciate Ortho input May benefit from Rehab: SNF PT/OT recommends SNF but patient and family prefers to go home with home health Continue Sling at all times except for showering or getting dressed No active ROM of the shoulder. 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 anticoagulation continue Amiodarone, Aspirin ANXIETY continue Ativan prn HLD h/o statin intolerance PERIPHERAL VASCULAR DISEASE continue Aspirin, Imdur H/O THORACIC AORTIC ANEURYSM 3.9 cm on last check follow up with PCP DVT PROPHYLAXIS: Sq heparin CODE STATUS: LEVEL 5 DNR per my discussion with the patient and his son DISPOSITION: Plan to discharge today: Home with home health [facility] consulted Needs Vit B12 shots as outpatient Follow up with : on 08/17/16 at 2:00pm Total time spent on discharge = This includes examination of the patient, discharge planning, medication reconciliation, and communication with other providers. Discharge Instructions Discharge Instructions Admission Reason for Admission: Altered Mental Status, Urinary Symptoms Or Sign Discharge Discharge Diagnosis / Problem: Encephalopathy, ZULLY Discharge Goals Goal(s): Decrease discomfort, Improve function Activity Recommendations Activity Limitations: resume your previous activity Exercise/Sports Limitations: as tolerated . Instructions / Follow-Up Instructions / Follow-Up Follow up with on 08/17/16 at 2:00PM Seek immediate medical attention if your symptoms reoccur or worsen Follow up with your doctor regarding Vit B12 injections Current Hospital Diet Patient's current hospital diet: AHA Diet (Heart Healthy) Discharge Diet Recommended Diet: AHA Diet (Heart Healthy) Pending Studies Studies pending at discharge: no Medical Emergencies . Who to Call and When: Medical Emergencies: If at any time you feel your situation is an emergency, please call 911 immediately. . Non-Emergent Contact Non-Emergency issues call your: Primary Care Provider Call Non-Emergent contact if: you have a fever, your pain is worsening, you have any medication questions . . "Provider Documentation" section prepared by Dileep Gaines. VTE Core Measure Inpt VTE Proph given/why not?: Unfractionated heparin SQ
[2016-08-13 12:24] VITALS: BP 122/58; PULSE 83; TEMP 36.7; O2SAT 92
[2016-08-13 12:34] LABS: URINE APPEARANCE CLEAR (CLEAR); URINE BILIRUBIN NEG (NEG); URINE COLOR YELLOW; URINE NITRITE NEG (NEG); URINE SPECIFIC GRAVITY 1.014 (1.000-1.030); UROBILINOGEN NEG (NEG)
[2016-08-13 12:35] LABS: MANUAL MICROSCOPIC REQUIRED? NO; REVIEW REQ? NO
[2016-08-13] MEDS: CEFTRIAXONE SOD INJ 1 GM in DEXTROSE 5% ADD-VANTAGE 50ML 50 ML IV SCH (13:42)
[2016-08-13 15:31] VITALS: BP 122/58; PULSE 83; TEMP 36.7; O2SAT 92
[2016-08-13 15:57] VITALS: BP 112/69; PULSE 74; TEMP 36.6; O2SAT 92
== END 2016-08-13 16:15 | disposition home health service (06) | DRG 70 ==
LOC: ENRESERVDT → ENRESERVTM → C.EDB 09:14 → C.MED 13:40
PROVIDERS: ADMIT Hospitalist; ATTEND Internal Medicine
DX: G93.40 Encephalopathy, unspecified (principal); N17.9 Acute kidney failure, unspecified; Z79.52 Long term (current) use of systemic steroids; J44.9 Chronic obstructive pulmonary disease, unspecified; Z99.81 Dependence on supplemental oxygen; I48.0 Paroxysmal atrial fibrillation; I27.2 Other secondary pulmonary hypertension; K21.9 Gastro-esophageal reflux disease without esophagitis; E03.9 Hypothyroidism, unspecified; Z86.711 Personal history of pulmonary embolism; E78.5 Hyperlipidemia, unspecified; Z86.010 Personal history of colon polyps; Z86.718 Personal history of other venous thrombosis and embolism; I73.9 Peripheral vascular disease, unspecified; Z95.0 Presence of cardiac pacemaker; Z87.891 Personal history of nicotine dependence; Z84.89 Family history of other specified conditions; Z82.49 Family history of ischemic heart disease and other diseases of the circulatory system; Z86.61 Personal history of infections of the central nervous system; Z88.5 Allergy status to narcotic agent; Z88.0 Allergy status to penicillin; Z88.3 Allergy status to other anti-infective agents; Z88.8 Allergy status to other drugs, medicaments and biological substances; Z79.82 Long term (current) use of aspirin; Z79.899 Other long term (current) drug therapy; F41.9 Anxiety disorder, unspecified; Z66 Do not resuscitate; R31.9 Hematuria, unspecified; Z87.01 Personal history of pneumonia (recurrent); D72.829 Elevated white blood cell count, unspecified; I71.2 Thoracic aortic aneurysm, without rupture; X58.XXXD Exposure to other specified factors, subsequent encounter; S42.201D Unspecified fracture of upper end of right humerus, subsequent encounter for fracture with routine healing; T38.0X5A Adverse effect of glucocorticoids and synthetic analogues, initial encounter; S42.301A Unspecified fracture of shaft of humerus, right arm, initial encounter for closed fracture; J18.9 Pneumonia, unspecified organism; W07.XXXA Fall from chair, initial encounter; J96.11 Chronic respiratory failure with hypoxia

== ENCOUNTER → 2016-08-25 | Outpatient (CLI) | payer OTHER ==
[~2016-08-25] MED LIST changes: +CYAN10005 PO; +LCTX PO; -MOME220A INH; +MOME6000; -PRD20 PO; -SULF800T23 PO
[2016-08-25 17:55] LABS: BLOOD UREA NITROGEN 37 mg/dl (7-18); BUN/CREATININE RATIO 18.7 (10-20); CALCIUM 8.7 mg/dl (8.5-10.1); CARBON DIOXIDE 26 mmol/L (21-32); CHLORIDE 101 mmol/L (98-107); GLUCOSE 121 mg/dl (70-99); POTASSIUM 4.8 mmol/L (3.5-5.1); SODIUM 137 mmol/L (136-145)
== END | disposition home or self-care (01) ==
LOC: C.LABSPEC 07:39
PROVIDERS: ATTEND Family Medicine
DX: R50.9 Fever, unspecified (principal)

== ENCOUNTER 2016-11-20 10:28 | Inpatient (IN) | payer OTHER ==
[~2016-11-20] VITALS: Ht 172.7 cm; Wt 74.6 kg
[~2016-11-20 10:28] MED LIST changes: -CYAN10005 PO; -LCTX PO; -MOME6000
--- NOTE | 2016-11-20 10:43 | EMERGENCY ROOM VISIT NOTE ---
History Report prepared by Scribe: Lloyd Schillign Under the Supervision of: Dr. Gi Bauer M.D. First contact with patient: 10:28 Stated Complaint: RESPIRATORY History of Present Illness The patient is an 86 year old male with a history of COPD who presents to the Emergency Room with acute respiratory arrest that started prior to arrival. Per EMS, the patient reportedly started gasping for breath 30 minutes prior to their arrival per family at the scene. The patient then became unresponsive and stopped breathing. The patient was placed intubated at the scene and has required no sedation en route. The patient became incontinent in the middle of the night which is unusual for him. He was also vomiting earlier this morning. The patient and his live in the basement of his son's house. Complete history is limited secondary to nonverbal status. Source of History: EMS History Limited By: other (nonverbal) Onset: prior to arrival Position: other (global) Quality: other (respiratory arrest) Timing: other (acute) Associated Symptoms: + SOB (patient was reportedly gasping for breath), + vomiting Review of Systems ROS is limited secondary to nonverbal status. 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 Surgical Problems: (1) S/P IVC filter (2) Status post abdominal aortic aneurysm repair (3) Status post aortobifemoral bypass surgery (4) Status post carotid endarterectomy (5) Status post colonoscopy Family History Abdominal aortic aneurysm FATHER Blood clots MOTHER Congestive heart failure MOTHER Meningitis SISTER Social History Marital Status: Housing Status: lives with family Occupation Status: retired Current/Historical Medications Scheduled Alendronate Sodium (Fosamax), 70 MG PO WK Amiodarone HCl (Amiodarone HCl), 200 MG PO DAILY Aspirin (Aspirin), 81 MG PO DAILY Cyanocobalamin (Vitamin B-12), 1,000 MCG PO DAILY Doxycycline Hyclate (Doxycycline Hyclate), 100 MG PO DAILY Guaifenesin La (Guaifenesin Er), 600 MG PO UD Isosorbide Dinitrate (Isordil), 20 MG PO BID Lactobacillus Acidophilus (Lactinex), 1 TAB PO TID Levothyroxine Sodium (Levothyroxine Sodium), 100 MCG PO DAILY Omeprazole (Prilosec), 20 MG PO BID Oxygen (Oxygen), 4 LITERS NA CONTINOUS Potassium Chloride (Potassium Chloride Sr), 10 MEQ PO DAILY Prednisone Tab (Prednisone), 10 MG PO DAILY Tiotropium [place] (Spiriva Handihaler), 1 CAP INH DAILY Scheduled PRN Acetaminophen (Tylenol), 650 MG PO Q4 PRN for Pain or Fever Albuterol Sulfate (Proair Respiclick), 2 PUFF INH Q4 PRN for SOB/Wheezing Docusate Sodium (Colace), 100 MG PO DAILY PRN for Constipation Furosemide (Furosemide), 20 MG PO WK PRN for EDEMA Hydrocodone/Acetaminophen 5MG/325MG ([place] 5MG/325MG), 1 TABLET PO Q4 PRN for Pain Ipratropium-Albuterol (Duoneb), 1 TREATMENT INH Q4H PRN for SOB/Wheezing Lorazepam (Ativan), 0.5 MG PO Q8 PRN for Anxiety Polyethylene Glycol 3350 (Miralax), 17 GM PO DAILY PRN for Constipation Miscellaneous Medications Mometasone Furoate (Nasal) (Mometasone Furoate) Prednisone (Prednisone), 10 MG PO Allergies Coded Allergies: Ciprofloxacin (Verified Allergy, Severe, RUPTURED RIGHT BICEP TENDON, 11/20) Levofloxacin (Verified Allergy, Severe, TONGUE SWELLING/SOB, 11/20/16) PER DR GERMAN PHONE CALL Amoxicillin (Verified Allergy, Intermediate, rash, 11/20/16) Codeine (Verified Adverse Reaction, Intermediate, CONSTIPATION, 11/20/16) Doxycycline (Verified Adverse Reaction, Intermediate, DISORIENTED AND DIZZINESS, 11/20/16) Morphine and Related (Verified Adverse Reaction, Intermediate, CONSTIPATION, 11/20/16) Roflumilast (Verified Adverse Reaction, Intermediate, [place] Drunk, 11/20/16) Listed in [facility] record Physical Exam Vital Signs Date Time Temp Pulse Resp B/P Pulse Ox O2 Delivery O2 Flow Rate FiO2 11/20/16 12:03 79 33 93 11/20/16 12:02 76/37 11/20/16 11:58 82 31 96 11/20/16 11:57 83/43 11/20/16 11:53 81 31 94 11/20/16 11:51 /45 11/20/16 11:48 85 32 92 11/20/16 11:47 47/25 11/20/16 11:43 96 17 86 11/20/16 11:42 96/62 11/20/16 11:38 74 33 11/20/16 11:37 /46 11/20/16 11:35 76 30 11/20/16 11:33 28 11/20/16 11:28 0 11/20/16 11:23 0 11/20/16 11:18 0 11/20/16 11:13 93 30 119/79 94 Mechanical Ventilator 11/20/16 11:13 86 32 96 11/20/16 11:08 103 30 100 11/20/16 11:07 119/79 11/20/16 11:03 29 11/20/16 10:53 75 26 11/20/16 10:48 77 25 11/20/16 10:45 100 11/20/16 10:43 80 26 11/20/16 10:41 81 16 87 Mechanical Ventilator 15.0 11/20/16 10:41 84 Physical Exam Vital signs reviewed. General: Elderly and chronically ill-appearing male, intubated, nonresponsive, no purposeful movements. HEENT: No scleral icterus, PERRLA, neck supple. Atraumatic. Cardiovascular: Regular rate and rhythm, no extra sounds. Heart tones are distant. Pulses are thready Pulmonary: Rhonchorous breath sounds bilaterally. ventilated. Abdomen: Soft, nontender, nondistended Musculoskeletal: Atraumatic, no peripheral edema. Neurologic: Patient is non responsive, intubated. Little if any withdrawal to pain. rhythmic horizontal eye gaze, equal bilaterally. Skin: Warm, dry, no rash Medical Decision & Procedures ER Provider Diagnostic Interpretation: Bedside echo performed by me reveals a faint LV squeeze. Radiology results as stated below per my review and radiologist interpretation: CHEST ONE VIEW PORTABLE CLINICAL HISTORY: reps arrest, COPD, intubated dyspnea COMPARISON STUDY: 08/12/2016 FINDINGS: Interval placement of a tracheal tube 5 cm above the tessa. Interval development of a diffuse parenchymal infiltrative process throughout the right hemithorax. Left lung is grossly clear. Chronic fibrotic change left base. IMPRESSION: Diffuse infiltrative process throughout the right hemithorax. Endotracheal tube 5 cm above the tessa. Electronically signed by: Abram Prince M.D. 11/20/2016 10:46 AM Dictated Date/Time: 11/20/2016 10:[address]AST CT DOSE: 823.94 mGycm HISTORY: Mental status change AMS, reps arrest TECHNIQUE: Multiaxial CT images of the head were performed without the use of intravenous contrast. Comparison: 08/10/2016 Findings: The paranasal sinuses and mastoid air cells are clear. Moderate chronic small vessel change throughout both cerebral hemispheres. No evidence for acute intracranial hemorrhage. No midline shift. Impression: Chronic and age-related change. No acute process. No change from the prior exam. Electronically signed by: Abram Prince M.D. 11/20/2016 11:35 AM Dictated Date/Time: 11/20/2016 11:33 AM Laboratory Results 11/20/16 10:40 Red Blood Count 3.91, Mean Corpuscular Volume 104.6, Mean Corpuscular Hemoglobin 32.0, Mean Corpuscular Hemoglobin Concent 30.6, Mean Platelet Volume 10.4 11/20/16 10:40 Test 11/20/16 10:40 11/20/16 10:50 11/20/16 10:54 11/20/16 11:00 White Blood Count 7.09 K/uL (4.8-10.8) Red Blood Count 3.91 M/uL (4.7-6.1) Hemoglobin 12.5 g/dL (14.0-18.0) Hematocrit 40.9 % (42-52) Mean Corpuscular Volume 104.6 fL (80-100) Mean Corpuscular Hemoglobin 32.0 pg (25-34) Mean Corpuscular Hemoglobin Concent 30.6 g/dl (32-36) Platelet Count 155 K/uL (130-400) Mean Platelet Volume 10.4 fL (7.4-10.4) RDW Standard Deviation 60.4 fL (36.4-46.3) RDW Coefficient of Variation 15.9 % (11.5-14.5) Nucleated RBC Absolute Count (auto) 0.05 K/uL (0-0) Neutrophils % (Manual) 60.6 % Lymphocytes % (Manual) 7.7 % Monocytes % (Manual) 9.4 % Eosinophils % (Manual) 2.6 % Metamyelocytes % 11.1 % Myelocytes % 7.7 % Blast Cells % 0.9 % Nucleated Red Blood Cells % 0.7 % Neutrophils # (Manual) 4.30 K/uL (1.4-6.5) Total Absolute Neutrophils 4.30 K/uL (1.4-6.5) Lymphocytes # (Manual) 0.55 K/uL (1.2-3.4) Total Absolute Lymphocytes 0.55 K/uL (1.2-3.4) Monocytes # (Manual) 0.67 K/uL (0.11-0.59) Eosinophils # (Manual) 0.18 K/uL (0-0.5) Metamyelocytes # 0.79 K/uL (0-0) Myelocytes # 0.55 K/uL (0-0) Blast Cells # 0.06 K/uL (0-0) Ovalocytes 1+ Echinocytes 1+ Est Creatinine Clear Calc Drug Dose 18.7 ml/min Estimated GFR () 22.8 Estimated GFR (Non- 19.7 BUN/Creatinine Ratio 16.4 (10-20) Calcium Level 7.6 mg/dl (8.5-10.1) Magnesium Level 1.9 mg/dl (1.8-2.4) Total Bilirubin 0.4 mg/dl (0.2-1) Direct Bilirubin 0.1 mg/dl (0-0.2) Aspartate Amino Transf (AST/SGOT) 16 U/L (15-37) Alanine Aminotransferase (ALT/SGPT) 17 U/L (12-78) Alkaline Phosphatase 82 U/L (45-117) Total Creatine Kinase 53 U/L (39-308) Creatine Kinase MB 2.3 ng/ml (0.5-3.6) Creatine Kinase MB Ratio 4.3 (0-3.0) Total Protein 4.7 gm/dl (6.4-8.2) Albumin 2.4 gm/dl (3.4-5.0) Bedside Lactic Acid Venous 7.57 mmol/L (0.90-1.70) Bedside Chloride 106 mEq/L (101-112) Bedside Total CO2 21 mEq/l (24-31) Anion Gap 24.0 mmol/L (16-25) Bedside Blood Urea Nitrogen 40 mg/dl (7-18) Bedside Creatinine 2.4 mg/dl (0.6-1.3) Bedside Glucose (other) 108 mg/dl (70-99) Bedside Ionized Calcium (Jess) 1.11 mmol/l (1.12-1.32) Bedside Troponin I 0.050 ng/ml (0-0.045) OC-Qpz-Q-Type Natriuretic Peptide 1968 pg/ml (0-1800) Test 11/20/16 11:10 Bedside Hemoglobin 11.2 g/dl (14.0-18.0) Bedside Hematocrit 33 % (42-52) Bedside Blood Gas pH (LAB) 7.12 (7.35-7.45) Bedside Blood Gas pCO2 (LAB) 60 mmHg (35-46) Bedside Blood Gas pO2 (LAB) 61 mmHg (80-95) Bedside Blood Gas HCO3 (LAB) 20 meq/L (19-24) Bedside Blood Gas Total CO2 21 mEq/l (24-31) Bedside Blood Gas Base Excess (LAB) -10.0 meq/L (-9-1.8) Bedside Blood Gas O2 Saturation 81.0 % (90-95) Bedside Sodium 142 mEq/L (135-144) Bedside Potassium 4.6 mEq/L (3.3-5.0) Laboratory results per my review. Medications Administered Medications (Trade) Dose Ordered Sig/Jesu Route Start Time Stop Time Status Last Admin Dose Admin Sodium Bicarbonate (Sodium Bicarbonate 8.4% Inj) 50 ml Yushino-MED ONCE IV 11/20/16 11:54 11/20/16 11:55 DC 11/20/16 11:54 150 ML ECG Indication: other (respiratory arrest) Rate (beats per minute): 81 Rhythm: normal sinus Findings: no acute ischemic change, prolonged QT (QTC 494), other (poor quality baseline for interpretation ) ED Course 1028: Past medical records reviewed. The patient was evaluated in room B1. A complete history and physical examination was performed. 1115: Norepinephrine Bitartrate 8 mg / dextrose 508 ml @ 0 mls/hr. 1122: Checked on the patient. 1122:Cefepime HCl 2000 mg / dextrose 112.5 ml @ 225 mls/hr. Order was eventually cancelled. 1123: Clindamycin Phosphate 900 mg / dextrose 106 ml @ 106 mls/hr. Order was eventually cancelled. 1125: Updated the patient's family. 1130: Norepinephrine Bitartrate 4 mg / dextrose 254 ml @ 0 mls/hr. 1135: Discussed the case with Dr. Reed, [employer]. 1138: Discussed the case with GUCCI Brito [facility]. 1145: Dr. Reed is at bedside. Medical Decision Differential diagnosis: Etiologies such as infections, aspiration, reactive airway disease, pneumonia, pneumothorax, COPD, CHF, cardiac ischemia, pulmonary embolism, musculoskeletal, gastrointestinal, as well as others were entertained. This patient was evaluated and was critically ill. Pulses were difficult to palpate, bedside echo confirms weak cardiac activity. Pt required no sedation. I suspect pt aspirated the vomit earlier today and suffered a respiratory arrest. Pt EKG reveals no acute ischemia. CXR reveals a R sided infiltrative process. ETT is in good position. Pt was given 1 amp of epi with improvement in pulses and slightly better neurologic response, but still no sedation required. IV cefepime and clindamycin were ordered. He was placed on a norepinephrine drip and required a second epi for thready pulses. Dr Reed of the ICU was contacted and evaluated the pt in the ED. He has discussed the case with family and after some thought, he has been made comfort care. Please see his noted for further details. [facility] was consulted. Consults Time Called: 1133 Consulting Physician: Dr. Reed, [employer]. Returned Call: 1135 Additional Consults: Time Called: 1133 Consulted Physician: GUCCI Brito, [facility]. Returned Call: [phone] Impression Primary Impression: Respiratory arrest Additional Impressions: Aspiration of vomitus Hypotension Critical Care I have personally spent greater than 75 minutes of critical care time in the direct management of this patient. This includes bedside care, interpretation of diagnostic studies, and testing, discussion with consultants, patient, and family members, and other required patient management activities. This 75 minutes is in excess of all separately billable procedures. Scribe Attestation The scribe's documentation has been prepared under my direction and personally reviewed by me in its entirety. I confirm that the note above accurately reflects all work, treatment, procedures, and medical decision making performed by me. Departure Information Dispostion Other (Intensive Care Unit) Problem Qualifiers Additional Impressions: Aspiration of vomitus Encounter type: initial encounter Qualified Codes: T17.910A - Gastric contents in respiratory tract, part unspecified causing asphyxiation, initial encounter
--- NOTE | 2016-11-20 10:48 | DIAGNOSTIC IMAGING REPORT ---
CHEST ONE VIEW PORTABLE CLINICAL HISTORY: reps arrest, COPD, intubated dyspnea COMPARISON STUDY: 08/12/2016 FINDINGS: Interval placement of a tracheal tube 5 cm above the tessa. Interval development of a diffuse parenchymal infiltrative process throughout the right hemithorax. Left lung is grossly clear. Chronic fibrotic change left base. IMPRESSION: Diffuse infiltrative process throughout the right hemithorax. Endotracheal tube 5 cm above the tessa. Electronically signed by: Abram Prince M.D. 11/20/2016 10:46 AM Dictated Date/Time: 11/20/2016 10:46 AM
[2016-11-20 10:59] LABS: HEMATOCRIT 40.9 % (42-52); MEAN CELL VOLUME 104.6 fL (80-100); MEAN CORPUSCULAR HGB CONC 30.6 g/dl (32-36); MEAN PLATELET VOLUME 10.4 fL (7.4-10.4); PLATELET COUNT 155 K/uL (130-400); RED BLOOD COUNT 3.91 M/uL (4.7-6.1); WHITE BLOOD COUNT 7.09 K/uL (4.8-10.8)
[2016-11-20] MEDS ORDERED: PRED10TA PO (11:04)
[2016-11-20] MEDS ORDERED: CYAN10005 PO (11:04)
[2016-11-20] MEDS ORDERED: LCTX PO (11:04)
[2016-11-20] MEDS ORDERED: MOME6000 (11:04)
[2016-11-20 11:07] LABS: ISTAT CREATININE 2.4 mg/dl (0.6-1.3); ISTAT HEMOGLOBIN 12.6 g/dl (14.0-18.0); ISTAT IONIZED CALCIUM 1.11 mmol/l (1.12-1.32)
[2016-11-20] MEDS ORDERED: NOREPINEPHRINE BIT INJ 8 MG in DEXTROSE 5% 500ML 500 ML IV PRN (11:15)
[2016-11-20 11:18] LABS: BUN/CREATININE RATIO 16.4 (10-20); CALCIUM 7.6 mg/dl (8.5-10.1); CREATININE 2.8 mg/dl (0.60-1.40); MAGNESIUM 1.9 mg/dl (1.8-2.4)
[2016-11-20 11:20] LABS: POINT OF CARE TROPONIN I 0.05 ng/ml (0-0.045)
[2016-11-20] MEDS ORDERED: CEFEPIME IV 2000 MG in DEXTROSE 5% 100ML IV STA (11:22)
[2016-11-20 11:23] LABS: CKMB/CK RATIO 4.3 (0-3.0)
[2016-11-20] MEDS ORDERED: CLINDAMYCIN IV 900 MG in DEXTROSE 5% ADD-VANTAGE 100ML 100 ML IV STA (11:23)
[2016-11-20 11:25] LABS: ECHINOCYTES 1+; OVALOCYTES 1+
[2016-11-20 11:28] LABS: COMPLETE YES; EOSINOPHIL % 2.6 %; LYMPH ABS # 0.55 K/uL (1.2-3.4); LYMPHOCYTE % 7.7 %; META ABS # 0.79 K/uL (0-0); METAMYELOCYTE % 11.1 %; MYELOCYTE % 7.7 %; NEUTROPHILS % 60.6 %
[2016-11-20] MEDS ORDERED: NOREPINEPHRINE BIT INJ 4 MG in DEXTROSE 5% 250ML 250 ML IV PRN (11:30)
--- NOTE | 2016-11-20 11:36 | DIAGNOSTIC IMAGING REPORT ---
HEAD CT NONCONTRAST CT DOSE: 823.94 mGycm HISTORY: Mental status change AMS, reps arrest TECHNIQUE: Multiaxial CT images of the head were performed without the use of intravenous contrast. Comparison: 08/10/2016 Findings: The paranasal sinuses and mastoid air cells are clear. Moderate chronic small vessel change throughout both cerebral hemispheres. No evidence for acute intracranial hemorrhage. No midline shift. Impression: Chronic and age-related change. No acute process. No change from the prior exam. Electronically signed by: Abram Prince M.D. 11/20/2016 11:35 AM Dictated Date/Time: 11/20/2016 11:33 AM
[2016-11-20] MEDS ORDERED: SODIUM BICARB 8.4% INJ 50 MEQ/50 ML SYR IV ONE ×2 (11:54→15:44)
[2016-11-20 12:00] LABS: ISTAT ARTERIAL BLOOD GAS HCO3 20 meq/L (19-24); ISTAT ARTERIAL BLOOD GAS PCO2 60 mmHg (35-46); ISTAT ARTERIAL BLOOD GAS PO2 61 mmHg (80-95); ISTAT ARTERIAL BLOOD GAS pH 7.12 (7.35-7.45); ISTAT CARBON DIOXIDE 21 mEq/l (24-31); ISTAT HEMATOCRIT 33 % (42-52); ISTAT HEMOGLOBIN 11.2 g/dl (14.0-18.0); ISTAT SODIUM 142 mEq/L (135-144)
[2016-11-20 12:08] VITALS: BP 76/37; TEMP 36.4
[2016-11-20 12:10] VITALS: O2SAT 87; Ht 172.7 cm; Wt 74.6 kg
[2016-11-20] MEDS ORDERED: MoRPHine SULFATE 2 MG/ML CARP ONE (12:11)
[2016-11-20] MEDS ORDERED: MoRPHine SULF/NSS 250MG/250ML 250 ML IV PRN (12:15)
[2016-11-20 12:18] VITALS: O2SAT 87
--- NOTE | 2016-11-20 12:26 | History and Physical ---
History & Physical Date of Service November 20, 2016. History & Physical 86 year old male with multiple complex medical conditions, including severe oxygen dependent COPD, was brought to the ER via EMS after an unresponsive episode at home. History is unobtainable from the patient due to his mental status. Per ER documentation, patient was incontinent of stool and urine this morning. helped to clean him and then developed vomiting. Shortly after he became unresponsive and EMS was called. Oxygen saturations were 68%, he was intubated in the field. Upon arrival to the ER, BPs and pulses were difficult to obtained. ABG shows respiratory acidosis. CXR shows an infiltrate throughout the right lung. Patient was given IVF bolus, epi amp x 2, and started on Levophed drip. Patient is not responsive to stimuli and is not sedated. Medical Problems: (1) AAA (abdominal aortic aneurysm) Permanent Comment: CT angio 06/11/15-stable 4.4 cm AAA Status: Chronic (2) Abdominal hernia Status: Chronic (3) Atrial fibrillation and flutter Status: Chronic (4) Carotid artery stenosis Status: Chronic (5) Chronic obstructive lung disease Status: Chronic (6) Chronic respiratory failure Status: Chronic (7) Dyslipidemia Status: Chronic (8) History of adenomatous polyp of colon Status: Chronic (9) History of central retinal artery occlusion Status: Chronic (10) History of Clostridium difficile Status: Chronic (11) History of DVT (deep vein thrombosis) Permanent Comment: unprovoked bilat pulm emboli + DVT LLE December 2013 Status: Chronic (12) History of pulmonary embolism Permanent Comment: unprovoked bilat pulm emboli + DVT LLE December 2013 Status: Chronic (13) Hypothyroidism Status: Chronic (14) Peripheral vascular disease Status: Chronic (15) Pulmonary nodules Status: Chronic (16) Rectus sheath hematoma Status: Chronic (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 Surgical Problems: (1) S/P IVC filter Status: Chronic (2) Status post abdominal aortic aneurysm repair Status: Chronic (3) Status post aortobifemoral bypass surgery Status: Chronic (4) Status post carotid endarterectomy Status: Chronic (5) Status post colonoscopy Status: Chronic EXAM: GENERAL: intubated, unresponsive EYES: pupils non reactive to light RESP: intubated, breathing over vent; lung sounds diminished and coarse in the bases CARDIAC: heart rate controlled and regular, peripheral pulses not palpable, weak femoral and carotid pulses, no edema NEURO: minimally responsive to sternal rub A/P: 86 year old male presenting to the ER with unresponsiveness and respiratory arrest likely due to aspiration from vomiting. Noted multiple chronic comorbid conditions, including severe oxygen dependent COPD. Poor prognosis. Dr. Reed (home care associate) had a long discussion with the family regarding goals of care. Noted copy of patient's living will on the chart that states DNR status. Per Dr. Reed, patient will be terminally extubated and placed on comfort measures. Morphine drip ordered. ADDENDUM: This is an 86 year old male with a PMH of severe COPD, A. Fib presents to the ER after being found unresponsive in his house; as per , he was incontinent last night; he also vomited, he was unresponsive this morning and about half an hour afterwards, EMS was called. He was ventilated and intubated on the field and brought in for further eval. Upon arrival, noted to have very weak pulses, significant drop in blood pressure, was started on Levophed drip. Loading Inspector was consulted, who spoke with family and they agreed that it is in the best interest of the patient to terminally wean the patient and make him comfortable. Family at bedside. Patient has been made comfort measures only status; morphine drip started in the ER. He will be taken to the ICU for extubation. Terminal wean protocol to be followed. He may pass quickly following the extubation. If not, we will transfer to fourth floor for comfort measures. Scopolamine patch ordered.
[2016-11-20 13:13] VITALS: PULSE 64
[2016-11-20] MEDS ORDERED: SCOPOLAMINE 1.5 MG TDSY TD SCH (14:00)
--- NOTE | 2016-11-20 14:03 | Discharge Summary ---
Discharge Summary Date of Service November 20, 2016. Discharge Summary Admission Date: November 20, 2016 at 12:06 Discharge Date: November 20, 2016 Discharge Disposition: Principal Diagnosis: Respiratory Arrest secondary to Aspiration Cardiac Arrest Hypotension Severe COPD A. Fib Admission Information HPI (per Admitting provider): 86 year old male with multiple complex medical conditions, including severe oxygen dependent COPD, was brought to the ER via EMS after an unresponsive episode at home. History is unobtainable from the patient due to his mental status. Per ER documentation, patient was incontinent of stool and urine this morning. helped to clean him and then developed vomiting. Shortly after he became unresponsive and EMS was called. Oxygen saturations were 68%, he was intubated in the field. Upon arrival to the ER, BPs and pulses were difficult to obtained. ABG shows respiratory acidosis. CXR shows an infiltrate throughout the right lung. Patient was given IVF bolus, epi amp x 2, and started on Levophed drip. Patient is not responsive to stimuli and is not sedated. Medical Problems: (1) AAA (abdominal aortic aneurysm) Permanent Comment: CT angio 06/11/15-stable 4.4 cm AAA Status: Chronic (2) Abdominal hernia Status: Chronic (3) Atrial fibrillation and flutter Status: Chronic (4) Carotid artery stenosis Status: Chronic (5) Chronic obstructive lung disease Status: Chronic (6) Chronic respiratory failure Status: Chronic (7) Dyslipidemia Status: Chronic (8) History of adenomatous polyp of colon Status: Chronic (9) History of central retinal artery occlusion Status: Chronic (10) History of Clostridium difficile Status: Chronic (11) History of DVT (deep vein thrombosis) Permanent Comment: unprovoked bilat pulm emboli + DVT LLE December 2013 Status: Chronic (12) History of pulmonary embolism Permanent Comment: unprovoked bilat pulm emboli + DVT LLE December 2013 Status: Chronic (13) Hypothyroidism Status: Chronic (14) Peripheral vascular disease Status: Chronic (15) Pulmonary nodules Status: Chronic (16) Rectus sheath hematoma Status: Chronic (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 Surgical Problems: (1) S/P IVC filter Status: Chronic (2) Status post abdominal aortic aneurysm repair Status: Chronic (3) Status post aortobifemoral bypass surgery Status: Chronic (4) Status post carotid endarterectomy Status: Chronic (5) Status post colonoscopy Status: Chronic EXAM: GENERAL: intubated, unresponsive EYES: pupils non reactive to light RESP: intubated, breathing over vent; lung sounds diminished and coarse in the bases CARDIAC: heart rate controlled and regular, peripheral pulses not palpable, weak femoral and carotid pulses, no edema NEURO: minimally responsive to sternal rub A/P: 86 year old male presenting to the ER with unresponsiveness and respiratory arrest likely due to aspiration from vomiting. Noted multiple chronic comorbid conditions, including severe oxygen dependent COPD. Poor prognosis. Dr. Reed (cash control specialist) had a long discussion with the family regarding goals of care. Noted copy of patient's living will on the chart that states DNR status. Per Dr. Reed, patient will be terminally extubated and placed on comfort measures. Morphine drip ordered. ADDENDUM: This is an 86 year old male with a PMH of severe COPD, A. Fib presents to the ER after being found unresponsive in his house; as per , he was incontinent last night; he also vomited, he was unresponsive this morning and about half an hour afterwards, EMS was called. He was ventilated and intubated on the field and brought in for further eval. Upon arrival, noted to have very weak pulses, significant drop in blood pressure, was started on Levophed drip. Incubator Operator was consulted, who spoke with family and they agreed that it is in the best interest of the patient to terminally wean the patient and make him comfortable. Family at bedside. Patient has been made comfort measures only status; morphine drip started in the ER. He will be taken to the ICU for extubation. Terminal wean protocol to be followed. He may pass quickly following the extubation. If not, we will transfer to fourth floor for comfort measures. Scopolamine patch ordered. Hospital Course 86 year old male with multiple complex medical conditions, including severe oxygen dependent COPD, was brought to the ER via EMS after an unresponsive episode at home. History is unobtainable from the patient due to his mental status. Per ER documentation, patient was incontinent of stool and urine this morning. helped to clean him and then developed vomiting. Shortly after he became unresponsive and EMS was called. Oxygen saturations were 68%, he was intubated in the field. Upon arrival to the ER, BPs and pulses were difficult to obtained. ABG shows respiratory acidosis. CXR shows an infiltrate throughout the right lung. Patient was given IVF bolus, epi amp x 2, and started on Levophed drip. Patient is not responsive to stimuli and is not sedated. Medical Problems: (1) AAA (abdominal aortic aneurysm) Permanent Comment: CT angio 06/11/15-stable 4.4 cm AAA Status: Chronic (2) Abdominal hernia Status: Chronic (3) Atrial fibrillation and flutter Status: Chronic (4) Carotid artery stenosis Status: Chronic (5) Chronic obstructive lung disease Status: Chronic (6) Chronic respiratory failure Status: Chronic (7) Dyslipidemia Status: Chronic (8) History of adenomatous polyp of colon Status: Chronic (9) History of central retinal artery occlusion Status: Chronic (10) History of Clostridium difficile Status: Chronic (11) History of DVT (deep vein thrombosis) Permanent Comment: unprovoked bilat pulm emboli + DVT LLE December 2013 Status: Chronic (12) History of pulmonary embolism Permanent Comment: unprovoked bilat pulm emboli + DVT LLE December 2013 Status: Chronic (13) Hypothyroidism Status: Chronic (14) Peripheral vascular disease Status: Chronic (15) Pulmonary nodules Status: Chronic (16) Rectus sheath hematoma Status: Chronic (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 Surgical Problems: (1) S/P IVC filter Status: Chronic (2) Status post abdominal aortic aneurysm repair Status: Chronic (3) Status post aortobifemoral bypass surgery Status: Chronic (4) Status post carotid endarterectomy Status: Chronic (5) Status post colonoscopy Status: Chronic EXAM: GENERAL: intubated, unresponsive EYES: pupils non reactive to light RESP: intubated, breathing over vent; lung sounds diminished and coarse in the bases CARDIAC: heart rate controlled and regular, peripheral pulses not palpable, weak femoral and carotid pulses, no edema NEURO: minimally responsive to sternal rub A/P: 86 year old male presenting to the ER with unresponsiveness and respiratory arrest likely due to aspiration from vomiting. Noted multiple chronic comorbid conditions, including severe oxygen dependent COPD. Poor prognosis. Dr. Reed (cash control specialist) had a long discussion with the family regarding goals of care. Noted copy of patient's living will on the chart that states DNR status. Per Dr. Reed, patient will be terminally extubated and placed on comfort measures. Morphine drip ordered. ADDENDUM: This is an 86 year old male with a PMH of severe COPD, A. Kayla presents to the ER after being found unresponsive in his house; as per , he was incontinent last night; he also vomited, he was unresponsive this morning and about half an hour afterwards, EMS was called. He was ventilated and intubated on the field and brought in for further eval. Upon arrival, noted to have very weak pulses, significant drop in blood pressure, was started on Levophed drip. Incubator Operator was consulted, who spoke with family and they agreed that it is in the best interest of the patient to terminally wean the patient and make him comfortable. Family at bedside. Patient has been made comfort measures only status; morphine drip started in the ER. He will be taken to the ICU for extubation. Terminal wean protocol to be followed. He may pass quickly following the extubation. If not, we will transfer to fourth floor for comfort measures. Scopolamine patch ordered. 11/20 I was called in to see the patient after he was terminally extubated, he stopped breathing and rhythm strip showed asystole around 1341 Family in the room when I entered, condolences given; family taking this news as best as they can. Pupils fixed and dilated No spontaneous respirations no response to tactile stimuli no pulse noted Time of : 1340 Cause of : Respiratory Arrest secondary to Significant Aspiration, Cardiac Arrest and Hypotension with Severe COPD contributing Paperwork and certificate filled out Total time spent on discharge = This includes examination of the patient, discharge planning, medication reconciliation, and communication with other providers. Discharge Instructions .
[2016-11-20] MEDS ORDERED: SODIUM CHLORIDE 0.9% 10ML FLUSH IV ONE (15:44)
[2016-11-20] MEDS ORDERED: CHECK SCOPOLAMINE PATCH PLACEMENT SCH (16:00)
--- NOTE | 2016-12-02 11:30 | Critical Care Consultation ---
Critical Care Consultation Date of Consultation: 11/20/2016 Delayed chart entry Attending Physician: Yunier Monge DO Reason for Consultation: Respiratory arrest and altered mental status History of Present Illness Patient is a 86-year-old male with a significant past medical history for oxygen dependent COPD. History is obtained from the family and paramedics, patient was feeling ill the last 24 hours and had multiple episodes of emesis. He was last seen normal at approximately midnight when the family checked on him later they discovered him to be unresponsive. They contacted 911 patient was found to be profoundly hypoxic and was intubated by EMS. I have been asked to evaluate the patient due to intubation and respiratory failure Family History Abdominal aortic aneurysm FATHER Blood clots MOTHER Congestive heart failure MOTHER Meningitis SISTER Social History Smoking Status: Former Smoker Drug Use: none Marital Status: Housing Status: lives with family Occupation Status: retired Allergies Coded Allergies: Ciprofloxacin (Verified Allergy, Severe, RUPTURED RIGHT BICEP TENDON, 11/20) Levofloxacin (Verified Allergy, Severe, TONGUE SWELLING/SOB, 11/20/16) PER DR GERMAN PHONE CALL Amoxicillin (Verified Allergy, Intermediate, rash, 11/20/16) Codeine (Verified Adverse Reaction, Intermediate, CONSTIPATION, 11/20/16) Doxycycline (Verified Adverse Reaction, Intermediate, DISORIENTED AND DIZZINESS, 11/20/16) Morphine and Related (Verified Adverse Reaction, Intermediate, CONSTIPATION, 11/20/16) Roflumilast (Verified Adverse Reaction, Intermediate, [place] Drunk, 11/20/16) Listed in [facility] record Home Medications Scheduled Alendronate Sodium (Fosamax), 70 MG PO WK Amiodarone HCl (Amiodarone HCl), 200 MG PO DAILY Aspirin (Aspirin), 81 MG PO DAILY Cyanocobalamin (Vitamin B-12), 1,000 MCG PO DAILY Doxycycline Hyclate (Doxycycline Hyclate), 100 MG PO DAILY Guaifenesin La (Guaifenesin Er), 600 MG PO UD Isosorbide Dinitrate (Isordil), 20 MG PO BID Lactobacillus Acidophilus (Lactinex), 1 TAB PO TID Levothyroxine Sodium (Levothyroxine Sodium), 100 MCG PO DAILY Omeprazole (Prilosec), 20 MG PO BID Oxygen (Oxygen), 4 LITERS NA CONTINOUS Potassium Chloride (Potassium Chloride Sr), 10 MEQ PO DAILY Prednisone Tab (Prednisone), 10 MG PO DAILY Tiotropium [place] (Spiriva Handihaler), 1 CAP INH DAILY Scheduled PRN Acetaminophen (Tylenol), 650 MG PO Q4 PRN for Pain or Fever Albuterol Sulfate (Proair Respiclick), 2 PUFF INH Q4 PRN for SOB/Wheezing Docusate Sodium (Colace), 100 MG PO DAILY PRN for Constipation Furosemide (Furosemide), 20 MG PO WK PRN for EDEMA Hydrocodone/Acetaminophen 5MG/325MG ([place] 5MG/325MG), 1 TABLET PO Q4 PRN for Pain Ipratropium-Albuterol (Duoneb), 1 TREATMENT INH Q4H PRN for SOB/Wheezing Lorazepam (Ativan), 0.5 MG PO Q8 PRN for Anxiety Polyethylene Glycol 3350 (Miralax), 17 GM PO DAILY PRN for Constipation Miscellaneous Medications Mometasone Furoate (Nasal) (Mometasone Furoate) Prednisone (Prednisone), 10 MG PO Review of Systems Unable to obtain due to patient condition Physical Exam Physical exam Limited due to acuity of patient condition and situation General Appearance: mild distress Head: normocephalic Eyes: PERRLA Neck: no thyromegaly Respiratory: rales, rhonchi, wheezing, other (intubated with mechanical ventilation) Cardiovasular: regular rate/rhythm, no gallop, no rub, no JVD Genitourinary - Male: external genitalia normal Back: normal inspection Upper Extremities: no edema Lower Extremities: no edema Pulses: femoral (R) (1+), femoral (L) (1+) Neuro: other (intubated, withdrawing to pain) Assessment & Plan (1) Respiratory arrest (2) Hypotension (3) Aspiration of vomitus (4) Chronic obstructive lung disease (5) History of central retinal artery occlusion (6) History of pulmonary embolism (7) History of DVT (deep vein thrombosis) (8) AAA (abdominal aortic aneurysm) (9) Atrial fibrillation and flutter (10) History of Clostridium difficile Patient appears to have unfortunately suffered a respiratory arrest most likely due to an aspiration event given his recent vomiting. During my evaluation he is significantly hypotensive and I am concerned for acute respiratory distress syndrome as well as possible sepsis. The patient has significant comorbidities and I had a long discussion with the patient's and family. All were in agreement that the patient did not desire heroic measures and would not want to undergo additional medical treatment given the poor prognosis of acute respiratory distress and sepsis in the setting of his chronic medical conditions. He has been unhappy with his medical status and debilitation over the last 2 years. Accordingly they request the patient to be DO NOT RESUSCITATE and will transition from active medical treatment to comfort measures. He'll be admitted to the ICU and terminally extubated. Our focus will be on the patient's comfort as we will proceed with the natural dying process. I have personally spent 45 minutes of critical care time in the direct management of this patient. This is a life/limb threatening event. This includes time spent evaluating patient, direct bedside care, chart review, placing orders, interpretation of diagnostic studies, discussion with consultants, patient, and family members, as well as other required patient management activities. This time is exclusive of all separately billable procedures, and teaching time and separate from and in addition to any other critical care service time. Problem Qualifiers (1) Aspiration of vomitus: Encounter type: initial encounter Qualified Codes: T17.910A - Gastric contents in respiratory tract, part unspecified causing asphyxiation, initial encounter
== END 2016-11-20 15:45 | disposition expired | DRG 208 ==
LOC: ENRESERVTM → ENRESERVDT → EDBD 10:28 → C.EDB 10:29 → C.MSICU 12:06
PROVIDERS: ADMIT Family Medicine; ATTEND Family Medicine
PROC: 5A1945Z Respiratory Ventilation, 24-96 Consecutive Hours (ICD-10-PCS; principal; 2016-11-20)
DX: J69.0 Pneumonitis due to inhalation of food and vomit (principal); I48.92 Unspecified atrial flutter; E87.2 Acidosis; J96.10 Chronic respiratory failure, unspecified whether with hypoxia or hypercapnia; R09.2 Respiratory arrest; Z99.81 Dependence on supplemental oxygen; Z44.9 Encounter for fitting and adjustment of unspecified external prosthetic device; I48.91 Unspecified atrial fibrillation; E03.9 Hypothyroidism, unspecified; I46.9 Cardiac arrest, cause unspecified; I95.9 Hypotension, unspecified; Z66 Do not resuscitate; Z51.5 Encounter for palliative care; I71.4 Abdominal aortic aneurysm, without rupture; Z86.718 Personal history of other venous thrombosis and embolism; Z86.010 Personal history of colon polyps; Z95.0 Presence of cardiac pacemaker